=== PATIENT | female | born 1960 | race African-American/Black ===

== ENCOUNTER 2017-04-13 10:39 | Emergency (ER) | payer MEDICAID ==
[~2017-04-13] VITALS: Ht 170.2 cm; Wt 131.5 kg
[~2017-04-13 10:39] MED LIST: CALC667C PO; CELE200C PO; ENAL20TA PO; HYDR-552 PO; ZOLP10TA2 PO
--- NOTE | 2017-04-13 10:50 | NUR ---
PT TO ED ROOM 07. L FLANK PAIN SINCE YESTERDAY,NON RADIATING, DENIES HEMATURIA, DYSURIA. A/A/O. VS WNL. SIDE RAILS UP. HOB ELEVATED. CONENCTED TO MONITOR. SEEN AND EVALUATED BY ED PROVIDER.
--- NOTE | 2017-04-13 11:06 | NUR ---
CORRECTIONS SERGEANT AT BEDSIDE
[2017-04-13 11:12] LABS: BASOPHILS % (AUTO) 0.9 % (0.0-2.0); EOSINOPHILS # (AUTO) 0.2 /CMM (0.0-0.7); LYMPHOCYTES # (AUTO) 0.9 /CMM (0.8-4.8); MONOCYTES # (AUTO) 0.2 /CMM (0.1-1.30); NEUTROPHILS # (AUTO) 2.6 /CMM (1.8-8.9); RED BLOOD CELL COUNT(AUTO) 5.23 MIL/uL (4.0-5.2); WHITE BLOOD COUNT (AUTO) 3.9 K/uL (4.3-11.0)
[2017-04-13 11:14] LABS: EOSINOPHILS % (AUTO) 4.8 % (0.0-6.0); HEMATOCRIT 45 % (33-45); HEMOGLOBIN 14.6 g/dL (11.5-14.8); LYMPHOCYTES % (AUTO) 21.8 % (20.0-44.0); MEAN CORPUSCULAR HEMOGLOBIN 28 PG (26.0-33.0); MEAN CORPUSCULAR HGB CONC 32 g/dl (31.0-36.0); MEAN CORPUSCULAR VOLUME 86 fL (82-100); MONOCYTES % (AUTO) 5.9 % (2.0-12.0); NEUTROPHILS % (AUTO) 66.6 % (43.0-81.0); PLATELET COUNT (AUTO) 304 /CMM (150-450); RDW COEFFICIENT OF VARIATION 16.1 (11.5-15.0)
[2017-04-13 11:15] LABS: APPEARANCE,URINE Clear (CLEAR); BILIRUBIN,URINE Negative (NEGATIVE); BLOOD, URINE Negative Ery/uL (NEGATIVE); COLOR,URINE Yellow (YELLOW); KETONES,URINE Negative (NEGATIVE); LEUKOCYTE ESTERASE ,URINE Trace (NEGATIVE); NITRITE, URINE Negative (NEGATIVE); PROTEIN,URINE 100 mg/dl (NEGATIVE); UGLUCOSE Negative (NEGATIVE); UROBILINOGEN,URINE 0.2 EU/dL (0.2)
[2017-04-13 11:25] LABS: BACTERIA,URINE Few /HPF (None Seen); RBC,URINE 0-2 /HPF (0-2); SQUAMOUS EPITHELIAL CELL,UR Few /HPF (None Seen)
[2017-04-13 11:25] LABS: ALBUMIN 3.4 g/dL (3.4-5.0); BILIRUBIN,DIRECT 0.1 mg/dL (0.0-0.2); BILIRUBIN,TOTAL 0.4 mg/dL (0.2-1.0); CALCIUM, SERUM 8.8 mg/dL (8.5-10.1); CREATININE 2.2 mg/dL (0.6-1.3); POTASSIUM 4.1 mmol/L (3.5-5.1); TOTAL PROTEIN, SERUM 7.8 g/dL (6.4-8.2)
[2017-04-13 11:33] VITALS: BP 138/94
--- NOTE | 2017-04-13 11:35 | NUR ---
Patient discharged to home in stable condition. Written and verbal after care instructions given. Patient verbalizes understanding of instruction. NAD. VS WNL. Ambulatory with a steady gait.
== END 2017-04-13 11:35 | disposition home or self-care (01) ==
LOC: ER 10:40
DX: R10.9 Unspecified abdominal pain (principal); R22.1 Localized swelling, mass and lump, neck; N05.9 Unspecified nephritic syndrome with unspecified morphologic changes; I10 Essential (primary) hypertension; F17.200 Nicotine dependence, unspecified, uncomplicated; Z98.890 Other specified postprocedural states
CPT/HCPCS: 36415; 80048-TC; 80076-TC; 81000-TC; 83690-TC; 85025-TC; A4606; Z7610

== ENCOUNTER 2018-11-14 15:50 | Emergency (ER) | payer MEDICAID ==
[~2018-11-14] VITALS: Ht 170.2 cm; Wt 131.5 kg
[~2018-11-14 15:50] MED LIST changes: +HYDR-4384 PO; -HYDR-552 PO
--- NOTE | 2018-11-14 15:50 | NUR ---
PT BIB SELF WORSENING COUGH AND SOB X "FEW DAYS", PT IS AAOX3, NOT IN RESPIRATORY DISTRESS, V/S STABLE, KEPT RESTED AND COMFORTABLE. SEEN AND EXAMINE BY DR. GARZON.
[2018-11-14] MEDS ORDERED: ALBUTEROL FS 2.5 MG/3 ML VIAL.NEB CONTNEB ONE (16:30)
[2018-11-14] MEDS ORDERED: IPRATROPIUM NEB FS 0.5 MG/2.5 ML AMPUL.NEB NEB ONE (16:30)
[2018-11-14] MEDS ORDERED: predniSONE 20 MG TABLET PO ONE (16:30)
[2018-11-14] MEDS ORDERED: ALBUTEROL FS 2.5 MG/3 ML VIAL.NEB ONE (16:41)
[2018-11-14] MEDS ORDERED: IPRATROPIUM NEB FS 0.5 MG/2.5 ML AMPUL.NEB ONE (16:41)
--- NOTE | 2018-11-14 18:38 | NUR ---
Patient discharged to home in stable condition. Written and verbal after care instructions given. Patient verbalizes understanding of instruction.
[2018-11-14 18:39] VITALS: BP 136/79
[2019-01-21] MEDS ORDERED: FURO40TA5 PO (14:15)
[2019-01-21] MEDS ORDERED: CARV3.122 PO (14:15)
== END 2018-11-14 18:41 | disposition home or self-care (01) ==
LOC: ER 15:57
DX: J20.9 Acute bronchitis, unspecified (principal); N05.9 Unspecified nephritic syndrome with unspecified morphologic changes; Z96.649 Presence of unspecified artificial hip joint; Z96.669 Presence of unspecified artificial ankle joint

== ENCOUNTER 2019-01-18 12:21 | Inpatient (IN) | payer MEDICAID ==
[~2019-01-18] VITALS: Ht 170.2 cm; Wt 130.6 kg
--- NOTE | 2019-01-18 13:45 | NUR ---
FEELING SHORT OF BREATH X 5 DAYS. PT AAOX4, VSS. DENIES CP, DIZZINESS, N/V AT THIS TIME. PT SEEN & EVAL'D BY KAM MOSLEY. PLACED ON CHILDREN'S BOOK AUTHOR. WILL CONT TO MONITOR.
[2019-01-18 13:51] LABS: BASOPHILS % (AUTO) 0.7 % (0.0-2.0); EOSINOPHILS % (AUTO) 2.7 % (0.0-6.0); HEMATOCRIT 45 % (33-45); HEMOGLOBIN 14.4 g/dL (11.5-14.8); LYMPHOCYTES # (AUTO) 1.2 /CMM (0.8-4.8); LYMPHOCYTES % (AUTO) 17.7 % (20.0-44.0); MEAN CORPUSCULAR HGB CONC 32 g/dl (31.0-36.0); MEAN CORPUSCULAR VOLUME 93 fL (82-100); MONOCYTES # (AUTO) 0.5 /CMM (0.1-1.30); MONOCYTES % (AUTO) 7.3 % (2.0-12.0); NEUTROPHILS # (AUTO) 4.8 /CMM (1.8-8.9); NEUTROPHILS % (AUTO) 71.6 % (43.0-81.0); PLATELET COUNT (AUTO) 240 /CMM (150-450); RED BLOOD CELL COUNT(AUTO) 4.85 MIL/uL (4.0-5.2); WHITE BLOOD COUNT (AUTO) 6.7 K/uL (4.3-11.0)
[2019-01-18 14:02] LABS: CALCIUM, SERUM 8.7 mg/dL (8.5-10.1); CREATININE 2.5 mg/dL (0.6-1.3); POTASSIUM 4.9 mmol/L (3.5-5.1)
[2019-01-18 14:13] LABS: ALBUMIN 2.7 g/dL (3.4-5.0); BILIRUBIN,DIRECT 0.2 mg/dL (0.0-0.2); BILIRUBIN,TOTAL 0.9 mg/dL (0.2-1.0); TOTAL PROTEIN, SERUM 6.4 g/dL (6.4-8.2)
[2019-01-18] MEDS ORDERED: FUROSEMIDE 40 MG/4 ML VIAL IV ONE (16:00)
[2019-01-18] MEDS ORDERED: FUROSEMIDE 40 MG/4 ML VIAL ONE (16:06)
--- NOTE | 2019-01-18 16:20 | NUR ---
IV ACCESS OBTAIN ON THE L FOREARM 22G. PT NOTED WITH SOB WITH O2 SAT OF 90-92% ON RA. O2 ADMINISTERED @ 2LPM. PT SOB GOT RELIEVED AND VERBALIZED COMFORT.
--- NOTE | 2019-01-18 17:01 | NUR ---
321-1 TELE CHF ACCEPTING ROMAINE FLORES
--- NOTE | 2019-01-18 17:09 | NUR ---
EPIC PAGED SANDRA APIGEE DEVELOPER FOR THIS PATIENT
--- NOTE | 2019-01-18 19:20 | NUR ---
PT AAOX4, USING HER CELLPHONE, RR EVEN & UNLABORED. DENIES CP, SOB, DIZZINESS, N/V, WEAKNESS @ THIS TIME. WILL CONT TO MONITOR.
[2019-01-18 20:00] VITALS: BP 133/94
[2019-01-18] MEDS ORDERED: MAG HYDROX/AL HYDROX/SIMETH 30 ML UDC PO PRN (20:00)
[2019-01-18] MEDS ORDERED: NITROGLYCERIN 0.4 MG/TAB BOTTLE SL PRN (20:00)
[2019-01-18] MEDS ORDERED: ONDANSETRON HCL/PF 4 MG/2 ML VIAL IVP PRN (20:00)
[2019-01-18] MEDS ORDERED: MAGNESIUM HYDROXIDE 30 ML UDC PO PRN (20:00)
[2019-01-18] MEDS ORDERED: HYDROCODONE/APAP 5/325MG 1 EACH TABLET PO PRN (20:00)
[2019-01-18] MEDS ORDERED: ACETAMINOPHEN 325 MG TABLET PO PRN (20:00)
[2019-01-18] MEDS ORDERED: Z GUARD REMEDY 2 OZ OINT TP PRN (20:00)
[2019-01-18 20:30] VITALS: BP 133/94
[2019-01-18] MEDS: ZOLPIDEM TARTRATE 5 MG TABLET PO PRN (21:13)
[2019-01-18] MEDS: SIMVASTATIN 10 MG TABLET PO SCH (21:13)
[2019-01-18] MEDS: HEPARIN SODIUM, PORCINE 5000 UNITS/1 ML VIAL SQ SCH (21:14)
[2019-01-18] MEDS: CARVEDILOL 3.125 MG TABLET PO SCH (21:15)
--- NOTE | 2019-01-18 21:44 | NUR ---
Receive pt at 1950 from E.R services, Pt a/o x3 on 3lpm via de 02 sat at 97% respirations even and unlabored. head to toe assessment is done skin is intact. admit to telemetry unit with reading of SR 68 in the tele mtr. denies pain and sob, kept clean and dry. safety measures in place. no edema ble and bue. no face puffiness. will cont to mtr.
[2019-01-19] VITALS: BP 119/83
[2019-01-19 04:00] VITALS: BP 125/66
[2019-01-19 04:47] LABS: APPEARANCE,URINE CLEAR (CLEAR); BILIRUBIN,URINE NEGATIVE (NEGATIVE); BLOOD, URINE NEGATIVE Ery/uL (NEGATIVE); COLOR,URINE YELLOW (YELLOW); KETONES,URINE NEGATIVE (NEGATIVE); LEUKOCYTE ESTERASE ,URINE TRACE (NEGATIVE); NITRITE, URINE NEGATIVE (NEGATIVE); PROTEIN,URINE 1+ mg/dl (NEGATIVE); UGLUCOSE NEGATIVE (NEGATIVE); UROBILINOGEN,URINE 0.2 EU/dL (0.2)
[2019-01-19 04:54] LABS: BACTERIA,URINE Few /HPF (None Seen); RBC,URINE 0-2 /HPF (0-2); SQUAMOUS EPITHELIAL CELL,UR Few /HPF (None Seen)
--- NOTE | 2019-01-19 06:10 | NUR ---
ELECTROLYSIS OPERATOR CLOSING NOTE PT ASLEEP EASILY AWAKEN, SR 71 IN THE TELE MONITOR. RESPIRATIONS EVEN AND UNLABORED. NOT IN DISTRESS, STABLE. NEEDS ATTENDED AND ANTICIPATED, KEPT CLEAN AND DRY AND COMFORT. NO COMPLAIN OF PAIN. SAFETY MEASURES IN PLACE, BED IN LOW LOCKED POSITION, CALL LIGHT WITHIN EASY REACH. ENDORSE TO NEXT SHIFT CONTINUITY OF CARE.
--- NOTE | 2019-01-19 07:47 | NUR ---
MS/RN - Assessment Patient alert and oriented, denies pain, c/o mild shortness of breath with activity, on oxygen at 3lpm via NC. Seen by Dr. Pyle with order to dc tele monitoring, administer Lasix 40 mg IVP, labs, uric acid today. Saline lock on the LFA is patent, intact, with no signs of complications. Skin is intact. Patient assisted with ADLs to minimize exhaustion. All needs attended. Plan of care discussed with patient and in agreement. Will continue with current medical management.
[2019-01-19 08:00] VITALS: BP 136/112
[2019-01-19] MEDS: CARVEDILOL 3.125 MG TABLET PO SCH ×2 (08:18→21:34)
[2019-01-19] MEDS: FUROSEMIDE 40 MG/4 ML VIAL IV SCH ×3 (08:18→15:47)
[2019-01-19] MEDS: ASPIRIN EC 81 MG TABLET.DR PO SCH (08:18)
[2019-01-19] MEDS: HEPARIN SODIUM, PORCINE 5000 UNITS/1 ML VIAL SQ SCH ×2 (08:19→21:38)
[2019-01-19 08:25] LABS: BASOPHILS % (AUTO) 0.7 % (0.0-2.0); EOSINOPHILS % (AUTO) 4.2 % (0.0-6.0); HEMATOCRIT 45 % (33-45); HEMOGLOBIN 14.6 g/dL (11.5-14.8); MEAN CORPUSCULAR HGB CONC 32 g/dl (31.0-36.0); MEAN CORPUSCULAR VOLUME 92 fL (82-100); MONOCYTES # (AUTO) 0.4 /CMM (0.1-1.30); MONOCYTES % (AUTO) 6.6 % (2.0-12.0); NEUTROPHILS % (AUTO) 71.5 % (43.0-81.0); PLATELET COUNT (AUTO) 204 /CMM (150-450); RED BLOOD CELL COUNT(AUTO) 4.91 MIL/uL (4.0-5.2); WHITE BLOOD COUNT (AUTO) 5.6 K/uL (4.3-11.0)
[2019-01-19 08:42] LABS: CALCIUM, SERUM 8.6 mg/dL (8.5-10.1); CREATININE 2.6 mg/dL (0.6-1.3); MAGNESIUM 1.7 mg/dL (1.8-2.4); PHOSPHORUS 4.8 mg/dL (2.5-4.9); POTASSIUM 4.7 mmol/L (3.5-5.1)
[2019-01-19] MEDS: Magnesium 1GM/D5W 100ML PREMIX 100 ML IV SCH ×2 (09:01→10:10)
[2019-01-19 09:03] LABS: THYROID STIMULATING HORMONE 6.657 uIU/mL (0.358-3.74)
[2019-01-19] MEDS ORDERED: LOSA50TA39 PO (10:24)
[2019-01-19] MEDS ORDERED: OXYC-133 PO (10:24)
[2019-01-19] MEDS ORDERED: BUPR100T5 PO (10:24)
[2019-01-19] MEDS ORDERED: ARIP2TAB3 PO (10:24)
[2019-01-19] MEDS ORDERED: ALLO100T PO (10:24)
[2019-01-19] MEDS ORDERED: MULT-1119 PO (10:24)
[2019-01-19] MEDS ORDERED: ATEN100T PO (10:24)
[2019-01-19] MEDS ORDERED: COLC0.6C3 PO (10:27)
[2019-01-19 16:00] VITALS: BP 137/99
--- NOTE | 2019-01-19 17:34 | NUR ---
MS/RN - End of shift summary No new events seen. Patient resting comfortably, remain afebrile, saline lock on the right hand is patent, intact, with no signs of infiltration. Lasix 40 mg IVP x 3 doses completed, patient diuresing well, magnesium sulfate 2 gms IV given as ordered. All needs attended. Fall precautions maintained. Will endorse to the night nurse accordingly.
--- NOTE | 2019-01-19 19:30 | NUR ---
RN MS OPENING NOTES RECEIVED PATIENT IN BED AWAKE, ALERT AND ORIENTED X4, VERBALLY RESPONSIVE, ABLE TO MAKE NEEDS KNOWN. FAMILY AT BEDSIDE. BREATHING EVEN AND UNLABORED. NO SOB NOTED. TOLERATING ROOM AIR. FEELS "FINE" WITHOUT OXYGEN AT THE MOMENT. EXPRESS RELIEF FROM LASIX GIVEN TODAY. NO COMPLAINTS OF PAIN OR DISCOMFORT. NO FACIAL GRIMACING. IV ON RIGHT HAND INTACT AND PATENT. SKIN DRY AND WARM TO TOUCH. AFEBRILE. ALL OTHER NEEDS ATTENDED TO .SAFETY MEASURES IN PLACE. CALL LIGHT WITHIN REACH. WILL CONTINUE TO MONITOR.
[2019-01-19 20:00] VITALS: BP 114/87
[2019-01-19] MEDS: SIMVASTATIN 10 MG TABLET PO SCH (21:34)
[2019-01-19] MEDS: ZOLPIDEM TARTRATE 5 MG TABLET PO PRN (21:35)
--- NOTE | 2019-01-20 06:36 | NUR ---
RN MS NOTES PHLEB HAD A HARD TIME DRAWING BLOOD FOR TODAY'S LABS. PATIENT REQUESTED TO BE POKED ONLY. PER PHLEB, THEY WILL HAVE TO COME BACK LATER. WILL ENDORSE TO ONCOMING NURSE.
--- NOTE | 2019-01-20 06:37 | NUR ---
RN MS CLOSING NOTES PATIENT RESTING IN BED. CAREGIVER AT BEDSIDE. BREATHING EVEN AND UNLABORED. NO SOB NOTED. TOLERATING ROOM AIR. NO COMPLAINTS OF PAIN OR DISCOMFORT. NO FACIAL GRIMACING. IV ON RIGHT HAND INTACT AND PATENT. SKIN DRY AND WARM TO TOUCH. AFEBRILE. ALL OTHER NEEDS ATTENDED TO .SAFETY MEASURES IN PLACE. CALL LIGHT WITHIN REACH. WILL ENDORSE TO ONCOMING NURSE FOR JEAN PIERRE.
--- NOTE | 2019-01-20 07:35 | NUR ---
MS/RN - Assessment Patient alert and oriented, no complaints overnight, denies pain, states feeling better, on oxygen at 3lpm via NC. Saline lock on the right hand is patent, intact, with no signs of complications. Plan of care discussed with patient and family. Will continue with current medical management.
[2019-01-20 08:00] VITALS: BP 113/69
[2019-01-20] MEDS: CARVEDILOL 3.125 MG TABLET PO SCH ×2 (08:06→21:44)
[2019-01-20] MEDS: ASPIRIN EC 81 MG TABLET.DR PO SCH (08:06)
[2019-01-20] MEDS: HEPARIN SODIUM, PORCINE 5000 UNITS/1 ML VIAL SQ SCH ×2 (08:13→21:46)
[2019-01-20 08:43] LABS: BASOPHILS % (AUTO) 0.6 % (0.0-2.0); EOSINOPHILS % (AUTO) 5.7 % (0.0-6.0); HEMATOCRIT 45 % (33-45); HEMOGLOBIN 14.6 g/dL (11.5-14.8); LYMPHOCYTES # (AUTO) 1.4 /CMM (0.8-4.8); LYMPHOCYTES % (AUTO) 23.7 % (20.0-44.0); MEAN CORPUSCULAR HGB CONC 33 g/dl (31.0-36.0); MEAN CORPUSCULAR VOLUME 92 fL (82-100); MONOCYTES # (AUTO) 0.5 /CMM (0.1-1.30); MONOCYTES % (AUTO) 8.9 % (2.0-12.0); NEUTROPHILS # (AUTO) 3.5 /CMM (1.8-8.9); NEUTROPHILS % (AUTO) 61.1 % (43.0-81.0); PLATELET COUNT (AUTO) 227 /CMM (150-450); RED BLOOD CELL COUNT(AUTO) 4.88 MIL/uL (4.0-5.2); WHITE BLOOD COUNT (AUTO) 5.8 K/uL (4.3-11.0)
[2019-01-20 08:55] LABS: ALBUMIN 2.7 g/dL (3.4-5.0); BILIRUBIN,TOTAL 0.9 mg/dL (0.2-1.0); CALCIUM, SERUM 8.9 mg/dL (8.5-10.1); CREATININE 2.4 mg/dL (0.6-1.3); MAGNESIUM 1.9 mg/dL (1.8-2.4); PHOSPHORUS 4.6 mg/dL (2.5-4.9); POTASSIUM 4.1 mmol/L (3.5-5.1); TOTAL PROTEIN, SERUM 6.5 g/dL (6.4-8.2)
[2019-01-20] MEDS: FUROSEMIDE 40 MG/4 ML VIAL IV SCH ×3 (09:13→16:23)
[2019-01-20] MEDS ORDERED: GUAIFENESIN 300 MG/15 ML UDC PO PRN (11:30)
[2019-01-20 16:00] VITALS: BP 117/77
[2019-01-20] MEDS: ARIPIPRAZOLE 2 MG TABLET PO SCH (17:39)
--- NOTE | 2019-01-20 17:58 | NUR ---
MS/RN - End of shift summary No new events seen. Patient states feeling better, remain afebrile, saline lock on the right hand is patent, intact, with no signs of infiltration. Lasix 40 mg IVP x 3 doses completed, patient diuresing well. All needs attended. Will endorse to the night nurse accordingly.
--- NOTE | 2019-01-20 19:41 | NUR ---
RN MS OPENING NOTES RECEIVED PATIENT IN BED AWAKE, ALERT AND ORIENTED X4, VERBALLY RESPONSIVE, ABLE TO MAKE NEEDS KNOWN. FAMILY AT BEDSIDE. BREATHING EVEN AND UNLABORED. NO SOB NOTED. TOLERATING ROOM AIR. FEELS "FINE" WITHOUT OXYGEN AT THE MOMENT. NO COMPLAINTS OF PAIN OR DISCOMFORT. NO FACIAL GRIMACING. IV ON RIGHT HAND INTACT AND PATENT. SKIN DRY AND WARM TO TOUCH. AFEBRILE. ALL OTHER NEEDS ATTENDED TO .SAFETY MEASURES IN PLACE. CALL LIGHT WITHIN REACH. WILL CONTINUE TO MONITOR.
[2019-01-20 20:26] VITALS: BP 118/89
[2019-01-20] MEDS: SIMVASTATIN 10 MG TABLET PO SCH (21:44)
[2019-01-20] MEDS: ZOLPIDEM TARTRATE 5 MG TABLET PO PRN (21:44)
--- NOTE | 2019-01-21 06:43 | NUR ---
RN MS CLOSING NOTES PATIENT RESTING IN BED. BREATHING EVEN AND UNLABORED. NO SOB NOTED. TOLERATING ROOM AIR. NO COMPLAINTS OF PAIN OR DISCOMFORT. NO FACIAL GRIMACING. IV ON RIGHT HAND INTACT AND PATENT. SKIN DRY AND WARM TO TOUCH. AFEBRILE. ALL OTHER NEEDS ATTENDED TO .SAFETY MEASURES IN PLACE. CALL LIGHT WITHIN REACH. WILL ENDORSE TO ONCOMING NURSE FOR JEAN PIERRE.
[2019-01-21 06:47] LABS: BASOPHILS % (AUTO) 0.6 % (0.0-2.0); EOSINOPHILS % (AUTO) 4.5 % (0.0-6.0); HEMATOCRIT 48 % (33-45); HEMOGLOBIN 15.8 g/dL (11.5-14.8); LYMPHOCYTES # (AUTO) 1.5 /CMM (0.8-4.8); LYMPHOCYTES % (AUTO) 25.4 % (20.0-44.0); MEAN CORPUSCULAR HGB CONC 33 g/dl (31.0-36.0); MEAN CORPUSCULAR VOLUME 92 fL (82-100); MONOCYTES # (AUTO) 0.6 /CMM (0.1-1.30); MONOCYTES % (AUTO) 10.8 % (2.0-12.0); NEUTROPHILS # (AUTO) 3.5 /CMM (1.8-8.9); NEUTROPHILS % (AUTO) 58.7 % (43.0-81.0); PLATELET COUNT (AUTO) 234 /CMM (150-450); RED BLOOD CELL COUNT(AUTO) 5.23 MIL/uL (4.0-5.2)
[2019-01-21 06:50] LABS: ALBUMIN 2.7 g/dL (3.4-5.0); BILIRUBIN,TOTAL 0.8 mg/dL (0.2-1.0); CALCIUM, SERUM 8.9 mg/dL (8.5-10.1); CREATININE 2.4 mg/dL (0.6-1.3); MAGNESIUM 1.9 mg/dL (1.8-2.4); PHOSPHORUS 4.4 mg/dL (2.5-4.9); POTASSIUM 3.9 mmol/L (3.5-5.1); TOTAL PROTEIN, SERUM 6.7 g/dL (6.4-8.2)
--- NOTE | 2019-01-21 07:41 | NUR ---
RN MS OPENING NOTES RECEIVED PATIENT IN BED AWAKE, ALERT AND ORIENTED X4, ABLE TO MAKE NEEDS KNOWN. BREATHING EVEN AND UNLABORED. NO SOB NOTED. TOLERATING ROOM AIR WITH O2 SAT. 99%. NO COMPLAINTS OF PAIN OR DISCOMFORT AT THIS TIME. IV ON RIGHT HAND GAUGE #22 INTACT AND PATENT. SKIN DRY AND WARM TO TOUCH. AFEBRILE. VITAL SIGNS WNL. SAFETY MEASURES IN PLACE, BED IN LOWEST LOCKED POSITION SR UP X2. CALL LIGHT WITHIN REACH. WILL CONTINUE TO MONITOR.
[2019-01-21 08:15] VITALS: BP 110/80
[2019-01-21] MEDS ORDERED: ALLOPURINOL 100 MG TABLET PO SCH (09:00)
[2019-01-21] MEDS ORDERED: MULTIVIT W/MINERALS 1 TAB TABLET PO SCH (09:00)
[2019-01-21] MEDS ORDERED: FUROSEMIDE 40 MG TABLET PO SCH (09:00)
[2019-01-21] MEDS ORDERED: buPROPion SR 100 MG TABLET.ER PO SCH (09:00)
[2019-01-21] MEDS: HEPARIN SODIUM, PORCINE 5000 UNITS/1 ML VIAL SQ SCH ×2 (10:17→20:49)
[2019-01-21] MEDS: CARVEDILOL 3.125 MG TABLET PO SCH ×2 (10:18→20:49)
[2019-01-21] MEDS: ASPIRIN EC 81 MG TABLET.DR PO SCH (10:18)
[2019-01-21] MEDS: CALCIUM ACETATE 667 MG TABLET PO SCH ×3 (10:18→17:32)
[2019-01-21] MEDS ORDERED: CARV3.122 PO (14:15)
[2019-01-21] MEDS ORDERED: FURO40TA5 PO (14:15)
[2019-01-21 16:00] VITALS: BP 108/75
[2019-01-21] MEDS: ARIPIPRAZOLE 2 MG TABLET PO SCH (17:32)
--- NOTE | 2019-01-21 18:55 | NUR ---
RN CLOSING NOTES PATIENT IS RESTING COMFORTABLY IN BED. PATIENT DENIES PAIN OR DISCOMFORT AT THIS TIME. IV ACCESS ON RIGHT HAND G#22 SALINE LOCKED, PATENT AND INTACT. BREATHING IS EVEN AND UNLABORED TO ROOM AIR WITH AN O2 SAT. 97%. VITAL SIGNS RECORDED AND ARE WNL AT THIS TIME. SAFETY PRECAUTIONS IMPLEMENTED, BED IN LOWEST LOCKED POSITION WITH SR UP X2, CALL LIGHT WITHIN REACH. PATIENT DISCHARGE ENDORSED TO TREASURY ACCOUNTANT NURSE.
--- NOTE | 2019-01-21 19:27 | NUR ---
MS RN RECEIVE PT IN BED. A/O X 3 RESPIRATIONS EVEN AND UNLABORED, NO SOB NOTED, NO DISTRESS, SAFETY MEASURES IN PLACE. WILL CONTINUE TO MONITOR. FOR DISCHARGE AWAITING SON
[2019-01-21 20:00] VITALS: BP 118/82
[2019-01-21 20:49] VITALS: BP 118/82
[2019-01-21] MEDS: SIMVASTATIN 10 MG TABLET PO SCH (21:01)
--- NOTE | 2019-01-21 21:09 | NUR ---
PATIENT DISCHARGE PATIENT LEFT AT 2108, ACCOMPANIED BY SON OLDER JIM PATIENT ON STABLE CONDITION NO S/S OF DISTRESS NOTED, NO CHEST PAIN, NO HEADACHE, NO NAUSEA AND VOMITING, NO COMPLAIN OF PAIN, VS STABLE, NO SOB, HEALTH EDUCATION AND EXIT CARE WAS PROVIDED, EDUCATION ABOUT DISEASE AND RISKS AND BENEFITS FOLLOW UP CARE PROVIDED, VERBALIZED UNDERSTANDING. DOCUMENTS WAS PROVIDED. CONTINUE MEDICATION PRESCRIPTION WAS PROVIDED. VERBALIZED UNDERSTANDING. ALL BELONGINGS WAS TAKEN, PT LEFT VIA W/C AND OWN VEHICLE. PATIENT APPRECIATIVE TO NURSES AND THANKFUL.
== END 2019-01-21 21:05 | disposition home or self-care (01) | DRG 194 ==
LOC: ER 12:31 → TELE 17:28 → MED 01-19 10:14
PROVIDERS: ADMIT Hospitalist; ATTEND Hospitalist
DX: I13.0 Hypertensive heart and chronic kidney disease with heart failure and stage 1 through stage 4 chronic kidney disease, or unspecified chronic kidney disease (principal); N17.0 Acute kidney failure with tubular necrosis; I50.33 Acute on chronic diastolic (congestive) heart failure; E44.1 Mild protein-calorie malnutrition; E66.01 Morbid (severe) obesity due to excess calories; N18.4 Chronic kidney disease, stage 4 (severe); G47.33 Obstructive sleep apnea (adult) (pediatric); Z87.891 Personal history of nicotine dependence; Z68.42 Body mass index [BMI] 45.0-49.9, adult; Z87.448 Personal history of other diseases of urinary system; F14.11 Cocaine abuse, in remission
CPT/HCPCS: 36415; 71045-TC; 76770-TC; 80048-TC; 80053-TC; 80061-TC; 80076-TC; 81000-TC; 83735-TC; 83880; 84100-TC; 84439-TC; 84443-TC; 84484-TC; 84550-TC; 85025-TC; 85730-TC; 87081-TC; 87086-TC; 87400; 93307-TC; G0378; J1644; J1940; J3475

== ENCOUNTER 2019-04-14 14:05 | Inpatient (IN) | payer MEDICAID ==
[~2019-04-14] VITALS: Ht 170.2 cm; Wt 128.8 kg
[~2019-04-14 14:05] MED LIST changes: +ALLO100T PO; +ARIP2TAB3 PO; +BUPR100T5 PO; +CARV3.122 PO; -CELE200C PO; -ENAL20TA PO; +FURO40TA5 PO; -HYDR-4384 PO; +MULT-1119 PO
--- NOTE | 2019-04-14 14:30 | NUR ---
PT PRESENTED TO THE ER WITH A C/O SOB. PT'S O2 SAT ON RA WAS 88%. PT WAS TRIAGED AND TAKEN TO ER #1 AND PLACED ON 2L O2 AND IS NOW SATURATING AT 95%. PT STATED THAT SHE IS A HAD STICK. IV ATTEMPT X 2 UNSUCCESSFUL. DEE RN AT THE BEDSIDE ATTEMPTING IV START. RESIDENTIAL TEAM LEADER X2 AT THE BEDSIDE.
[2019-04-14 14:59] LABS: BASOPHILS % (AUTO) 0.6 % (0.0-2.0); EOSINOPHILS % (AUTO) 3.8 % (0.0-6.0); HEMATOCRIT 46 % (33-45); HEMOGLOBIN 14.9 g/dL (11.5-14.8); LYMPHOCYTES % (AUTO) 22.2 % (20.0-44.0); MEAN CORPUSCULAR HGB CONC 32 g/dl (31.0-36.0); MEAN CORPUSCULAR VOLUME 94 fL (82-100); MONOCYTES # (AUTO) 0.4 /CMM (0.1-1.30); MONOCYTES % (AUTO) 8.1 % (2.0-12.0); NEUTROPHILS # (AUTO) 2.8 /CMM (1.8-8.9); NEUTROPHILS % (AUTO) 65.3 % (43.0-81.0); PLATELET COUNT (AUTO) 182 /CMM (150-450); RED BLOOD CELL COUNT(AUTO) 4.91 MIL/uL (4.0-5.2); WHITE BLOOD COUNT (AUTO) 4.3 K/uL (4.3-11.0)
--- NOTE | 2019-04-14 15:09 | NUR ---
PT REC'D ANOTHER WARM BLANKET.
[2019-04-14 15:12] LABS: CALCIUM, SERUM 8.8 mg/dL (8.5-10.1); CARBON DIOXIDE 25 mmol/L (21-32); CHLORIDE 111 mmol/L (98-107); CREATININE 2.8 mg/dL (0.6-1.3); GLUCOSE 81 mg/dL (74-106); SODIUM SERUM 144 mmol/L (136-145); UREA NITROGEN, BLOOD 42 mg/dL (7-18)
--- NOTE | 2019-04-14 15:16 | NUR ---
XRAY IN PROGRESS AT THE BEDSIDE.
[2019-04-14 15:20] LABS: ALANINE AMINOTRANSFERASE 16 U/L (12-78); ALBUMIN 3.5 g/dL (3.4-5.0); ALKALINE PHOSPHATASE 103 U/L (46-116); ASPARTATE AMINOTRANSFERASE 17 U/L (15-37); B-TYPE NATRIURETIC PEPTIDE 8973 PG/ML (0-125); BILIRUBIN,DIRECT 0.2 mg/dL (0.0-0.2); TOTAL PROTEIN, SERUM 7.2 g/dL (6.4-8.2)
[2019-04-14] MEDS ORDERED: CARV6.252 PO (15:29)
[2019-04-14] MEDS ORDERED: MULT-447 PO (15:29)
[2019-04-14] MEDS ORDERED: FURO-144 PO (15:29)
[2019-04-14] MEDS ORDERED: OXYC-133 PO (15:29)
[2019-04-14] MEDS ORDERED: HYDR-4076 PO (15:30)
[2019-04-14] MEDS ORDERED: ISOS20TA6 PO (15:30)
--- NOTE | 2019-04-14 15:58 | NUR ---
CALLED NURSING SUP REQUESTED TELE BED
--- NOTE | 2019-04-14 16:16 | NUR ---
ADMIT TO TELE ROOM 324-2 CHF, ANIBAL DUKE ACCEPTED
--- NOTE | 2019-04-14 16:29 | NUR ---
CALLING REPORT TO TELE NURSE.
[2019-04-14] MEDS ORDERED: HYDROCODONE/APAP 5/325MG 1 EACH TABLET PO PRN (16:30)
[2019-04-14] MEDS ORDERED: MORPHINE SULFATE INJ 2 MG/ML DISP.SYRIN IV PRN (16:30)
[2019-04-14] MEDS ORDERED: ACETAMINOPHEN 325 MG TABLET PO PRN (16:30)
[2019-04-14] MEDS ORDERED: MAGNESIUM HYDROXIDE 30 ML UDC PO PRN (16:30)
[2019-04-14] MEDS ORDERED: MAG HYDROX/AL HYDROX/SIMETH 30 ML UDC PO PRN (16:30)
[2019-04-14] MEDS ORDERED: ONDANSETRON HCL/PF 4 MG/2 ML VIAL IVP PRN (16:30)
[2019-04-14] MEDS ORDERED: ALBUTEROL FS 2.5 MG/0.5 ML VIAL.NEB NEB PRN (16:30)
--- NOTE | 2019-04-14 16:38 | NUR ---
REPORT GIVEN TO JUAN THAPA
[2019-04-14 17:00] VITALS: BP 126/96
[2019-04-14] MEDS ORDERED: hydrALAZINE HCL 25 MG TABLET PO SCH (17:00)
[2019-04-14] MEDS ORDERED: FUROSEMIDE 40 MG/4 ML VIAL IV SCH ×2 (17:00)
--- NOTE | 2019-04-14 17:00 | NUR ---
RECEIVED PATIENT AWAKE A/O X4 , ABLE TO AMBULATE WITH ASSISTANTS. BREATHING LABORED , EVEN ON O2 2L VIA NC SATURATING 93 5. PATIENT PLACED ON TELE , SR WITH 1 DEGREE BLOCK HR 75 AT THIS TIME. SKIN INTACT. PATIENT ORIENTED TO UNIT AND ROOM, EDUCATED TO USE CALL LIGHT. SAFETY PRECAUTIONS IN PLACE. BSC PLACED NEXT TO PATIENT'S BED. WILL CARRY OUT ADM.ORDERS.
[2019-04-14] MEDS: ISOSORBIDE MONONITRATE 20 MG TABLET PO SCH (17:48)
[2019-04-14] MEDS: CARVEDILOL 6.25 MG TABLET PO SCH (17:48)
[2019-04-14] MEDS: AZITHROMYCIN 500 MG in IV D5W 250 ML IV SCH (18:26)
[2019-04-14 20:00] VITALS: BP 97/60
--- NOTE | 2019-04-14 20:37 | NUR ---
PATIENT IS REQUESTING A COUGH MED, TEXTED THE CHIEF UNDERWRITER ANIBAL. WAITING FOR THE RESPONSE.
[2019-04-14] MEDS: HEPARIN SODIUM, PORCINE 5000 UNITS/1 ML VIAL SQ SCH (21:46)
--- NOTE | 2019-04-14 22:29 | NUR ---
V/S TAKEN BY AESTHETICS INSTRUCTOR AT 1999 AND RECORDED, WNL. AFEBRILE.
[2019-04-15] VITALS: BP 123/53
[2019-04-15] MEDS: ZOLPIDEM TARTRATE 5 MG TABLET PO PRN ×2 (00:57→23:13)
[2019-04-15 04:10] VITALS: BP 115/64
--- NOTE | 2019-04-15 06:00 | NUR ---
RN CLOSING NOTES: PATIENT'S HEMODYNAMICS AND RESPIRATORY STATUS ARE STABLE. VS WNL. AFEBRILE. SLEPT THROUGHOUT THE NIGHT AFTER AMBIEN GIVEN. NO SOB NOTED. CALL LIGHT WITHIN REACH. BED IN LOW AND LOCKED POSITION.
--- NOTE | 2019-04-15 07:30 | NUR ---
tele logging tractor operator swamp: initial assessment received pt in bed awake, a/ox4. no c/o sob, chest pain, or any discomfort. tele sb to sr=[id number]. instructed to call for assistance. will continue to monitor.
[2019-04-15 08:00] VITALS: BP 103/80
--- NOTE | 2019-04-15 08:15 | NUR ---
tele enrollment advisor: notes previous weight was 270 lbs per pt from her last visit with her primary doctor. asked pt to stand up and will zero the bed out and to re-weight once zeroing is successful. current eheutj=066.5 lbs at this time and pt acknowledge it. will continue to monitor.
--- NOTE | 2019-04-15 08:25 | NUR ---
tele cable mock up assembler: notes jewels (acnp) here and informed him that pt has been coughing since last night and request for cough medicine with verbal order to give her robitussin dm 5ml po every 4 hours prn. order read back and carried out. for cardio consult. will continue to monitor.
--- NOTE | 2019-04-15 08:54 | NUR ---
tele tack welder: cardio consult seen and examined by dr. gonzalez with new orders. orders acknowledged. pt for d'c tele. will continue to monitor.
[2019-04-15] MEDS ORDERED: LEVALBUTEROL HCL NEB 1.25 MG/0.5 ML VIAL.NEB IH SCH (09:00)
[2019-04-15] MEDS ORDERED: GUAIFENESIN/D-METHORPHAN HB 5 ML UDC PO PRN (09:00)
[2019-04-15] MEDS: hydrALAZINE HCL 25 MG TABLET PO SCH ×3 (09:00→17:00)
[2019-04-15] MEDS ORDERED: LEVALBUTEROL HCL NEB 1.25 MG/0.5 ML VIAL.NEB ONE (09:05)
[2019-04-15] MEDS: MULTIVIT W/MINERALS 1 TAB TABLET PO SCH (09:27)
[2019-04-15] MEDS: ISOSORBIDE MONONITRATE 20 MG TABLET PO SCH ×3 (09:27→17:45)
[2019-04-15] MEDS: GUAIFENESIN/D-METHORPHAN HB 5 ML UDC PO PRN (09:27)
[2019-04-15] MEDS: CARVEDILOL 6.25 MG TABLET PO SCH ×2 (09:27→17:45)
[2019-04-15] MEDS: ASPIRIN 81 MG TAB.CHEW PO SCH (09:27)
[2019-04-15] MEDS: HEPARIN SODIUM, PORCINE 5000 UNITS/1 ML VIAL SQ SCH (09:33)
--- NOTE | 2019-04-15 09:47 | NUR ---
m/s mammography technician: notes dr. gonzalez notified re: positive for thrombus at left common femoral vein, pt is already on heparin 5000u sq q 12hr with order to give her lovenox pharmacy to dose. order read back and carried out.
--- NOTE | 2019-04-15 10:20 | NUR ---
m/s wireless store manager: notes jewels (acnp) notified re: us lower ext's venous results and informed him that dr. gonzalez ordered lovenox sq earlier with order to d'c heparin sq, okay with lovenox. orders read back and carried out and acknowledged.
--- NOTE | 2019-04-15 12:00 | NUR ---
m/s bit setter: nephro f/u seen by dr. carranza. lunch served. hob elevated. instructed to call for assistance.
[2019-04-15] MEDS: ALBUTEROL FS 2.5 MG/0.5 ML VIAL.NEB NEB SCH ×2 (13:02→20:35)
[2019-04-15] MEDS: ENOXAPARIN SODIUM 120 MG/0.8 ML DISP.SYRIN SQ SCH ×2 (13:10→23:16)
--- NOTE | 2019-04-15 14:00 | NUR ---
m/s tin flopper: pulmo consult seen by dr. wisdom.
--- NOTE | 2019-04-15 14:30 | NUR ---
m/s passenger barge master: notes consent obtained for nm pulmonary ventilation r/o pe from pt and verbalized understanding.
[2019-04-15 16:00] VITALS: BP 119/83
--- NOTE | 2019-04-15 16:00 | NUR ---
m/s balance wheel hand filer: notes pt picked up for nm pulmonary perfusion with ventilation via wheelchair at this time.
--- NOTE | 2019-04-15 17:00 | NUR ---
m/s alligator trapper: notes pt back for nuclear medicine. son at bedside. instructed to call for assistance. will continue to monitor.
--- NOTE | 2019-04-15 17:30 | NUR ---
m/s manager mba: notes jessica (labor supervisor) called and informed that they couldn't draw her blood today and will try to re draw tonight,
[2019-04-15] MEDS: AZITHROMYCIN 500 MG in IV D5W 250 ML IV SCH (17:53)
--- NOTE | 2019-04-15 18:45 | NUR ---
m/s straw hat presser: notes pt c/o iv site hurting her. noted with slight swelling, removed with tip intact. attempted to insert iv by me and another nurse, but unsuccessful. pt wants to rest for a bit and try again later. family at bedside. instructed to call for assistance.
--- NOTE | 2019-04-15 19:10 | NUR ---
m/s wetland scientist: notes bedside report given to lo (rn) for continuity of care.
--- NOTE | 2019-04-15 19:15 | NUR ---
MS RN OPENING NOTES: RECEIVED PATIENT COMFORTABLE IN BED HAPPY AND LAUGHING TALKING TO THE VISITORS AT THE BEDSIDE. PATIENT HAS O2 NC. NO COUGHING NOTED. PATIENT VERBALIZED" I FEEL BETTER TONIGHT".
[2019-04-15 20:15] VITALS: BP 109/82
[2019-04-15] MEDS ORDERED: ENOXAPARIN SODIUM 120 MG/0.8 ML DISP.SYRIN SQ SCH (21:00)
[2019-04-15 23:38] LABS: BASOPHILS % (AUTO) 0.9 % (0.0-2.0); EOSINOPHILS % (AUTO) 6.2 % (0.0-6.0); HEMATOCRIT 41 % (33-45); HEMOGLOBIN 13.1 g/dL (11.5-14.8); LYMPHOCYTES # (AUTO) 1.2 /CMM (0.8-4.8); LYMPHOCYTES % (AUTO) 25.6 % (20.0-44.0); MEAN CORPUSCULAR HGB CONC 32 g/dl (31.0-36.0); MEAN CORPUSCULAR VOLUME 93 fL (82-100); MONOCYTES # (AUTO) 0.5 /CMM (0.1-1.30); MONOCYTES % (AUTO) 11.7 % (2.0-12.0); NEUTROPHILS # (AUTO) 2.5 /CMM (1.8-8.9); NEUTROPHILS % (AUTO) 55.6 % (43.0-81.0); PLATELET COUNT (AUTO) 168 /CMM (150-450); RED BLOOD CELL COUNT(AUTO) 4.41 MIL/uL (4.0-5.2); WHITE BLOOD COUNT (AUTO) 4.6 K/uL (4.3-11.0)
[2019-04-15 23:50] LABS: ALBUMIN 2.9 g/dL (3.4-5.0); BILIRUBIN,TOTAL 0.6 mg/dL (0.2-1.0); CALCIUM, SERUM 8.2 mg/dL (8.5-10.1); CREATININE 3.2 mg/dL (0.6-1.3); PHOSPHORUS 4.6 mg/dL (2.5-4.9); POTASSIUM 4.5 mmol/L (3.5-5.1); TOTAL PROTEIN, SERUM 6.3 g/dL (6.4-8.2)
[2019-04-16] MEDS: ALBUTEROL FS 2.5 MG/0.5 ML VIAL.NEB NEB SCH ×4 (01:53→19:55)
--- NOTE | 2019-04-16 05:00 | NUR ---
MS RN CLOSING NOTES: PATIENT' S HEMODYNAMICS AND RESPIRATORY STATUS ARE STABLE. NO C/O PAIN. NO SOB NOTED. PATIENT STATES THAT SHE FEELS BETTER NOW. BED IN LOW AND LOCKED POSITION. CALL LIGHT WITHIN REACH.
[2019-04-16 07:18] LABS: BASOPHILS % (AUTO) 0.4 % (0.0-2.0); EOSINOPHILS % (AUTO) 6.8 % (0.0-6.0); HEMATOCRIT 42 % (33-45); HEMOGLOBIN 13.2 g/dL (11.5-14.8); LYMPHOCYTES % (AUTO) 23.6 % (20.0-44.0); MEAN CORPUSCULAR HGB CONC 32 g/dl (31.0-36.0); MEAN CORPUSCULAR VOLUME 93 fL (82-100); MONOCYTES # (AUTO) 0.5 /CMM (0.1-1.30); NEUTROPHILS # (AUTO) 2.3 /CMM (1.8-8.9); NEUTROPHILS % (AUTO) 56.2 % (43.0-81.0); PLATELET COUNT (AUTO) 163 /CMM (150-450); RED BLOOD CELL COUNT(AUTO) 4.46 MIL/uL (4.0-5.2); WHITE BLOOD COUNT (AUTO) 4.1 K/uL (4.3-11.0)
[2019-04-16 07:24] LABS: CALCIUM, SERUM 8.2 mg/dL (8.5-10.1); CREATININE 2.9 mg/dL (0.6-1.3); POTASSIUM 4.5 mmol/L (3.5-5.1)
--- NOTE | 2019-04-16 07:38 | NUR ---
M/S RN OPENING NOTES RECEIVED PT ON BED, A/O X 4 AND ABLE TO MAKE NEEDS KNOWN, RESPONSIVE TO ALL STIMULI. RESPIRATION EVEN AND NON LABORED WITH NO PRESENCE OF SHORTNESS OF BREATH, ON O2 AT 2LPM VIA NASAL CANNULA AND ABLE TO TOLERATE WELL. DENIES PAIN AND DISCOMFORT. ABDOMEN SOFT AND NON DISTENDED WITH ACTIVE BOWEL SOUNDS, BEDSIDE COMMODE PRESENT. SKIN WARM TO TOUCH, INTACT AND DRY. NO IV ACCESS, PER REPORT PATIENT WAS HARD STICK AND REFUSED IV INSERTION D/T MULTIPLE ATTEMPTS, NO IVF ORDERED. PLACED CALL LIGHT WITHIN REACH FOR SAFETY. WILL CONTINUE TO EVALUATE CARE
[2019-04-16 08:00] VITALS: BP 107/74
[2019-04-16] MEDS: ENOXAPARIN SODIUM 120 MG/0.8 ML DISP.SYRIN SQ SCH (08:07)
[2019-04-16] MEDS: hydrALAZINE HCL 25 MG TABLET PO SCH ×3 (08:08→16:32)
[2019-04-16] MEDS: ISOSORBIDE MONONITRATE 20 MG TABLET PO SCH ×3 (08:08→16:31)
[2019-04-16] MEDS: MULTIVIT W/MINERALS 1 TAB TABLET PO SCH (08:08)
[2019-04-16] MEDS: CARVEDILOL 6.25 MG TABLET PO SCH (08:08)
[2019-04-16] MEDS: ASPIRIN 81 MG TAB.CHEW PO SCH (08:09)
[2019-04-16] MEDS: AZITHROMYCIN 250 MG TABLET PO SCH (08:09)
[2019-04-16 09:02] LABS: ABG BASE EXCESS -7.2 mmol/L; ABG OXYGEN SATURATION 89.4 % (92.0-98.5); ABG PCO2 38.3 mmHg (35.0-45.0); ABG PH 7.302 (7.350-7.450); ABG PO2 60.3 mmHg (75.0-100.0); AaDO2 43.6 mmHg; COHb 0.9 % (0.5-1.5); MetHb 0.4 % (0.0-1.5); O2Hb 88.2 % (94.0-97.0); SITE, ABG Right Radial; VENT MODE, BG RA
--- NOTE | 2019-04-16 10:00 | NUR ---
M/S RN NOTES PATIENT REQUESTED TO SLEEP FOR NOW CAUSE SHE WASN'T ABLE TO SLEEP LAST NIGHT. WARM ENVIRONMENT PREFERRED, DIM LIGHT AND CLOSED BLINDS. PATIENT LEFT ASLEEP.
[2019-04-16] MEDS: GUAIFENESIN/D-METHORPHAN HB 5 ML UDC PO PRN ×2 (12:04→16:34)
--- NOTE | 2019-04-16 13:00 | NUR ---
M/S RN NOTES INFORMED PATIENT REGARDING NEW ORDER OF CT CHEST WITH NO CONTRAST. CONCERNS FOR STAYING SUPINE AND PRONE QUESTIONED AND STATED THAT SHE HAS BACK PAIN MOST OF THE TIME AND CANNOT LYE FLAT D/T PRESENCE OF SOB. RADIOLOGY NESTOR INFORMED.
[2019-04-16 16:00] VITALS: BP 119/65
--- NOTE | 2019-04-16 18:17 | NUR ---
M/S RN CLOSING NOTES PATIENT A/O X 4, RESPONSIVE TO ALL STIMULI AND ABLE TO MAKE NEEDS KNOWN. RESPIRATION EVEN AND NON LABORED WITH NO ACUTE RESPIRATORY DISTRESS, SOB PRESENT WHEN LYING FLAT. NON PRODUCTIVE COUGH NOTED TO PATIENT, ENCOURAGED TO INCREASE ORAL FLUID INTAKE AND VERBALIZED UNDERSTANDING. COUGH SYRUP GIVEN ORDERED. ON OXYGEN AT 2LPM VIA NASAL CANNULA SATING 95%. ABDOMEN SOFT AND NON DISTENDED WITH ACTIVE BOWEL SOUNDS, NO BM TODAY WITH URGE TO DO SO. SKIN WARM TO TOUCH, DRY AND INTACT. NO IV SITE PRESENT. DENIES PAIN AND DISCOMFORT. ALL CONCERNS ATTENDED. PLACED CALL LIGHT WITHIN REACH TO ENSURE SAFETY AT ALL TIMES. ENDORSED PATIENT CARE TO NEXT SHIFT.
--- NOTE | 2019-04-16 19:20 | NUR ---
CHANGE OF SHIFT REPORT Patient is awake, in bed chair position. Stable oxygen saturation on RA. Patient requesting sleeping medication as late 11:00 PM. Education provided on possible side effect, verbalized understanding. Instructed to use call light for assistance, verbalized understanding.
[2019-04-16 20:00] VITALS: BP 130/59
[2019-04-16] MEDS: ZOLPIDEM TARTRATE 5 MG TABLET PO PRN (22:02)
[2019-04-17] MEDS: ALBUTEROL FS 2.5 MG/0.5 ML VIAL.NEB NEB SCH ×6 (01:36→23:00)
--- NOTE | 2019-04-17 06:25 | NUR ---
CHANGE OF SHIFT REPORT Stable oxygen saturation on 2L via NC, denies SOB at rest and with exertion. Neb ATC per RT. On PO abx as scheduled with no adverse side effect, VSS. Slept well with PRN Ambien. Chest CT pending result. Maintained safety.
[2019-04-17 07:25] LABS: CALCIUM, SERUM 8.2 mg/dL (8.5-10.1); CREATININE 2.7 mg/dL (0.6-1.3); POTASSIUM 4.4 mmol/L (3.5-5.1)
--- NOTE | 2019-04-17 07:50 | NUR ---
M/S RN NOTES PATIENT RESTING, LYING IN BED, FAMILY AT BEDSIDE. PATIENT ON NASAL CANULA, 02 AT 2L, TOLERATING WELL. NO RESPIRATORY DISTRESS NOTED. NO C/O PAIN AT THIS TIME. SKIN WARM TO TOUCH. PATIENT'S NEEDS ATTENDED. BED ON LOWEST LOCKED POSTION, CALL LIGHT WITHIN REACH. WILL CONTINUE TO MONITOR.
[2019-04-17 07:55] LABS: BASOPHILS % (AUTO) 0.5 % (0.0-2.0); EOSINOPHILS % (AUTO) 6.5 % (0.0-6.0); HEMATOCRIT 42 % (33-45); HEMOGLOBIN 13.4 g/dL (11.5-14.8); LYMPHOCYTES % (AUTO) 21.4 % (20.0-44.0); MEAN CORPUSCULAR HGB CONC 32 g/dl (31.0-36.0); MEAN CORPUSCULAR VOLUME 93 fL (82-100); MONOCYTES # (AUTO) 0.6 /CMM (0.1-1.30); MONOCYTES % (AUTO) 12.3 % (2.0-12.0); NEUTROPHILS # (AUTO) 2.9 /CMM (1.8-8.9); NEUTROPHILS % (AUTO) 59.3 % (43.0-81.0); PLATELET COUNT (AUTO) 163 /CMM (150-450); RED BLOOD CELL COUNT(AUTO) 4.49 MIL/uL (4.0-5.2); WHITE BLOOD COUNT (AUTO) 4.9 K/uL (4.3-11.0)
[2019-04-17 08:00] VITALS: BP 112/83
[2019-04-17] MEDS: MULTIVIT W/MINERALS 1 TAB TABLET PO SCH (08:45)
[2019-04-17] MEDS: ISOSORBIDE MONONITRATE 20 MG TABLET PO SCH ×3 (08:45→17:37)
[2019-04-17] MEDS: hydrALAZINE HCL 25 MG TABLET PO SCH ×3 (08:46→17:37)
[2019-04-17] MEDS: AZITHROMYCIN 250 MG TABLET PO SCH (08:47)
[2019-04-17] MEDS: ASPIRIN 81 MG TAB.CHEW PO SCH (08:47)
[2019-04-17] MEDS: IPRATROPIUM NEB FS 0.5 MG/2.5 ML AMPUL.NEB NEB SCH ×4 (11:17→23:00)
[2019-04-17] MEDS: METOCLOPRAMIDE HCL 10 MG TABLET PO SCH ×3 (11:29→23:00)
[2019-04-17] MEDS: FAMOTIDINE (20 MG) 20 MG TABLET PO SCH ×2 (11:29→20:30)
[2019-04-17] MEDS: APIXABAN 2.5 MG TABLET PO SCH ×2 (11:33→17:44)
[2019-04-17] MEDS: GUAIFENESIN/D-METHORPHAN HB 5 ML UDC PO PRN (12:26)
[2019-04-17 16:00] VITALS: BP 116/80
--- NOTE | 2019-04-17 18:37 | NUR ---
M/S RN NOTES PATIENT AWAKE IN BED WITH FAMILY AT BEDSIDE. NO RESPIRATORY DISTRESS NOTED, NO C/O PAIN AT THIS TIME. PATIENT'S NEEDS ATTENDED. BED ON LOWEST LOCKED POSITION, CALL LIGHT WITHIN REACH. WILL ENDORSE TO ONCOMING NURSE.
--- NOTE | 2019-04-17 20:01 | NUR ---
MS RN OPENING NOTES: RECEIVED PT ON ROOM AIR AND IS TOLERATING WELL. HOB ELEVATED. 2 FAMILY MEMBERS AT BEDSIDE. PT A/OX4. NO SOB NOTED. NO S/S OF DISTRESS. NO IV NOTED AT THIS TIME. BED KEPT IN LOW, LOCKED POSITION, AND SIDE RAILS X 2UP. WILL CONTINUE TO MONITOR PT.
[2019-04-17 20:43] VITALS: BP 103/75
--- NOTE | 2019-04-17 21:52 | NUR ---
MS RN NOTES: INFORMED CIRCUIT BREAKER SUPERVISOR TAMMY THAT PT IS REQUESTING FOR AMBIEN 10MG THAT IT WHAT SHE TAKES HOME. THE 5MG THE PAST NIGHTS HAVE NOT BEEN WORKING FOR HER. GOT ORDER FOR AMBIEN 10MG PO QHS PRN.
[2019-04-17] MEDS ORDERED: ZOLPIDEM TARTRATE 10 MG TABLET PO PRN (22:00)
--- NOTE | 2019-04-17 22:14 | NUR ---
MS RN NOTES: PT REQUESTING FOR SLEEPING AID. PT WAS ADMINISTERED AMBIEN 10MG PO. ALSO, PT REQUESTS THAT RT STILL GIVES THE TREATMENT TO HER REGARDLESS IF SHE'S SLEEPING.
[2019-04-18] MEDS: IPRATROPIUM NEB FS 0.5 MG/2.5 ML AMPUL.NEB NEB SCH ×5 (04:07→19:30)
[2019-04-18] MEDS: ALBUTEROL FS 2.5 MG/0.5 ML VIAL.NEB NEB SCH ×5 (04:07→19:30)
[2019-04-18] MEDS: METOCLOPRAMIDE HCL 10 MG TABLET PO SCH ×3 (06:36→17:42)
[2019-04-18] MEDS: GUAIFENESIN/D-METHORPHAN HB 5 ML UDC PO PRN (06:41)
--- NOTE | 2019-04-18 07:25 | NUR ---
MS RN CLOSING NOTES: ALL NEEDS WERE ATTENDED AND ANTICIPATED FOR. PT KEPT CLEAN, DRY, AND COMFORTABLE. PT WAS GIVEN COUGH MEDICINE ORDERED. PT SAYING IT IS NOT WORKING ALTHOUGH SHE STILL WANTS IT TO COVER FOR NOW. NO IV NOTED AT THIS PT. HOB ELEVATED AT ALL TIMES. BED KEPT IN LOW, LOCKED POSITION, AND SIDE RAILS X 2UP. ENDORSED TO AM NURSE FOR JEAN PIERRE.
[2019-04-18] MEDS ORDERED: PANTOPRAZOLE 40 MG TABLET.DR PO SCH (07:30)
[2019-04-18 07:50] LABS: BASOPHILS % (AUTO) 0.5 % (0.0-2.0); EOSINOPHILS % (AUTO) 6.4 % (0.0-6.0); HEMATOCRIT 40 % (33-45); HEMOGLOBIN 13.1 g/dL (11.5-14.8); LYMPHOCYTES # (AUTO) 0.9 /CMM (0.8-4.8); LYMPHOCYTES % (AUTO) 20.9 % (20.0-44.0); MEAN CORPUSCULAR HGB CONC 33 g/dl (31.0-36.0); MEAN CORPUSCULAR VOLUME 92 fL (82-100); MONOCYTES # (AUTO) 0.5 /CMM (0.1-1.30); MONOCYTES % (AUTO) 12.3 % (2.0-12.0); NEUTROPHILS # (AUTO) 2.5 /CMM (1.8-8.9); NEUTROPHILS % (AUTO) 59.9 % (43.0-81.0); PLATELET COUNT (AUTO) 157 /CMM (150-450); RED BLOOD CELL COUNT(AUTO) 4.34 MIL/uL (4.0-5.2); WHITE BLOOD COUNT (AUTO) 4.2 K/uL (4.3-11.0)
--- NOTE | 2019-04-18 07:53 | NUR ---
MS RN NOTES PATIENT RECEIVED RESTING INSIDE ROOM. AWAKE, ALERT AND ORIENTED, VERBALLY RESPONSIVE AND RESPONDS TO VERBAL AND TACTILE STIMULI. BREATHING EVEN AND UNLABORED. NO ACUTE DISTRESS. DENIES ANY PAIN OR DISCOMFORT. WILL CONTINUE TO MONITOR. BED LOCKED AND IN LOW POSITION. BILATERAL UPPER SIDE RAILS UP AND LOCKED. CALL LIGHT WITHIN EASY REACH
[2019-04-18 07:58] LABS: CALCIUM, SERUM 8.3 mg/dL (8.5-10.1); CREATININE 2.6 mg/dL (0.6-1.3); POTASSIUM 4.4 mmol/L (3.5-5.1)
[2019-04-18] MEDS ORDERED: ASPI-1169 PO (08:31)
[2019-04-18] MEDS ORDERED: PANT40TA2 PO (08:31)
[2019-04-18] MEDS ORDERED: METO10TA3 PO (08:31)
[2019-04-18] MEDS ORDERED: ALBU8.5H8 INH (08:31)
[2019-04-18] MEDS ORDERED: APIX2.5T PO (08:31)
[2019-04-18] MEDS: ISOSORBIDE MONONITRATE 20 MG TABLET PO SCH ×3 (09:00→17:00)
[2019-04-18] MEDS: hydrALAZINE HCL 25 MG TABLET PO SCH ×3 (09:00→17:00)
[2019-04-18] MEDS: ASPIRIN 81 MG TAB.CHEW PO SCH (09:32)
[2019-04-18] MEDS: AZITHROMYCIN 250 MG TABLET PO SCH (09:32)
[2019-04-18] MEDS: FAMOTIDINE (20 MG) 20 MG TABLET PO SCH (09:32)
[2019-04-18] MEDS: MULTIVIT W/MINERALS 1 TAB TABLET PO SCH (09:32)
[2019-04-18] MEDS: APIXABAN 2.5 MG TABLET PO SCH ×2 (09:33→17:41)
[2019-04-18] MEDS ORDERED: DIATR MEGLU/DIATRIZOATE SODIUM 120 ML BOTTLE (GASTROGRAPHIN) ONE (09:42)
[2019-04-18] MEDS ORDERED: BARIUM SULFATE 98% 135 ML SUSP.RECON PO ONE (09:42)
--- NOTE | 2019-04-18 16:57 | NUR ---
MS RN NOTES WALKER PROVIDED TO PATIENT
[2019-04-18 17:00] VITALS: BP 110/60
--- NOTE | 2019-04-18 18:58 | NUR ---
MS RN NOTES PATIENT TO DISCHARGE HOME TODAY. DISCHARGE INSTRUCTIONS AND EDUCATION PROVIDED AND PATIENT VERBALIZED UNDERSTANDING. ALL BELONGINGS COMPLETE ON DISCHARGE, NO REPORT OF MISSING INVENTORY, NO IV ON PATIENT, ID BAND REMOVED. NO NEW SKIN BREAKDOWN ON DISCHARGE. PATIENT LEFT UNIT AT 1858 VIA WHEELCHAIR, ACCOMPANIED BY NURSING STAFF. PATIENT LEFT IN STABLE CONDITION. NO ACUTE DISTRESS, DENIES ANY PAIN OR DISCOMFORT. WRITTEN PRESCRIPTION GIVEN TO PATIENT. LEFT HOSPITAL PREMISES VIA PRIVATE CAR. MD AWARE OF DISCHARGE
== END 2019-04-18 19:00 | disposition home or self-care (01) | DRG 346 ==
LOC: ER 14:05 → TELE 16:22 → MED 04-15 08:53
PROVIDERS: ADMIT Nurse Practitioner Acute Care; ATTEND Student in an Organized Health Care Education/Training Program
DX: M34.9 Systemic sclerosis, unspecified (principal); N17.0 Acute kidney failure with tubular necrosis; I50.33 Acute on chronic diastolic (congestive) heart failure; J84.9 Interstitial pulmonary disease, unspecified; I82.411 Acute embolism and thrombosis of right femoral vein; I27.20 Pulmonary hypertension, unspecified; N18.4 Chronic kidney disease, stage 4 (severe); I13.0 Hypertensive heart and chronic kidney disease with heart failure and stage 1 through stage 4 chronic kidney disease, or unspecified chronic kidney disease; E66.01 Morbid (severe) obesity due to excess calories; E44.1 Mild protein-calorie malnutrition; Z68.41 Body mass index [BMI] 40.0-44.9, adult; M10.9 Gout, unspecified; Z87.891 Personal history of nicotine dependence; Z79.01 Long term (current) use of anticoagulants; G47.33 Obstructive sleep apnea (adult) (pediatric); K22.4 Dyskinesia of esophagus; N05.9 Unspecified nephritic syndrome with unspecified morphologic changes; J43.9 Emphysema, unspecified; R13.10 Dysphagia, unspecified; J40 Bronchitis, not specified as acute or chronic
CPT/HCPCS: 36415; 36600; 71045-TC; 71250-TC; 74230-TC; 78582; 80048-TC; 80053-TC; 80076-TC; 82803-TC; 83735-TC; 83880; 84100-TC; 84484-TC; 85025-TC; 85730-TC; 87040-TC; 87081-TC; 93970-TC; 94799-TC; 97116-TC; 97530-TC; A9540; A9567; G0378; J0456; J1644; J1650; J1940; J7050; J7060; J8597; Q9963

== ENCOUNTER 2019-07-05 18:24 | Inpatient (IN) | payer MEDICAID ==
[~2019-07-05] VITALS: Ht 170.2 cm; Wt 114.8 kg
[~2019-07-05 18:24] MED LIST changes: +ALBU8.5H8 INH; -ALLO100T PO; +APIX2.5T PO; -ARIP2TAB3 PO; +ASPI-1169 PO; -BUPR100T5 PO; -CALC667C PO; -CARV3.122 PO; +CARV6.252 PO; +FURO-144 PO; -FURO40TA5 PO; +HYDR-4076 PO; +ISOS20TA6 PO; +METO10TA3 PO; -MULT-1119 PO; +MULT-447 PO; +OXYC-133 PO; +PANT40TA2 PO
--- NOTE | 2019-07-05 18:25 | NUR ---
PT BIB SON C/O CHEST PAIN, NON RADIATING SHARP LIKE PAIN, ON ESRD LAST HD 06/28/19, PT IS AAOX4, NOT IN RESPIRATORY DISTRESS, HOOKED TO MONITOR. KEPT RESTED AND COMFORTABLE, WILL CONTINUE TO MONITOR.
--- NOTE | 2019-07-05 18:52 | NUR ---
SEEN AND EXAMINED BY .
--- NOTE | 2019-07-05 19:12 | NUR ---
BLOOD DRAWNED AND SENT TO LAB.
[2019-07-05 19:19] LABS: BASOPHILS # (AUTO) 0.1 /CMM (0.0-0.2); BASOPHILS % (AUTO) 0.8 % (0.0-2.0); EOSINOPHILS % (AUTO) 2.4 % (0.0-6.0); HEMATOCRIT 36 % (33-45); HEMOGLOBIN 11.4 g/dL (11.5-14.8); LYMPHOCYTES % (AUTO) 14.6 % (20.0-44.0); MEAN CORPUSCULAR HGB CONC 32 g/dl (31.0-36.0); MEAN CORPUSCULAR VOLUME 94 fL (82-100); MONOCYTES # (AUTO) 0.7 /CMM (0.1-1.30); MONOCYTES % (AUTO) 9.8 % (2.0-12.0); NEUTROPHILS # (AUTO) 4.9 /CMM (1.8-8.9); NEUTROPHILS % (AUTO) 72.4 % (43.0-81.0); PLATELET COUNT (AUTO) 246 /CMM (150-450); WHITE BLOOD COUNT (AUTO) 6.7 K/uL (4.3-11.0)
--- NOTE | 2019-07-05 19:20 | NUR ---
PICC LINE NURSE AT BEDSIDE.
[2019-07-05 19:26] LABS: CALCIUM, SERUM 9.5 mg/dL (8.5-10.1); CARBON DIOXIDE 23 mmol/L (21-32); CHLORIDE 103 mmol/L (98-107); CREATININE 5.2 mg/dL (0.6-1.3); GLUCOSE 99 mg/dL (74-106); POTASSIUM 4.6 mmol/L (3.5-5.1); SODIUM SERUM 138 mmol/L (136-145); UREA NITROGEN, BLOOD 42 mg/dL (7-18)
--- NOTE | 2019-07-05 19:28 | NUR ---
REPORT GIVEN TO JUAN MC FOR JEAN PIERRE.
--- NOTE | 2019-07-05 19:45 | NUR ---
CALLED FOR TELE BED
--- NOTE | 2019-07-05 20:13 | NUR ---
BED ASSIGNMENT 320-2
[2019-07-05] MEDS ORDERED: ALBUTEROL SULFATE INH 18 GM HFA.AER.AD IH PRN (20:30)
--- NOTE | 2019-07-05 20:35 | NUR ---
Report given to JENNIFER MARTINEZ for JEAN PIERRE.
--- NOTE | 2019-07-05 20:48 | NUR ---
WATER PURIFICATION CHEMIST OPENING NOTES: RECEIVED PT ON 2LPM VIA NC AND IS TOLERATING WELL. SON AT BEDSIDE. NO SOB NOTED. NO S/S OF DISTRESS. PT HAS ASHER MIDLINE AND IS PATENT AND INTACT. CURRENTLY H/L. PT TO BE PLACED ON TELE MONITOR. BED KEPT IN LOW, LOCKED POSITION, AND SIDE RAILS X 2UP. WILL CONTINUE TO MONITOR PT. Addendum: 07/05/19 at 2234 by MIKE CAGLE RN PT ALSO HAS L IJ PERMACATH PLACEMENT NOTED CLEAN AND DRY.
[2019-07-05 20:50] VITALS: BP 129/67
[2019-07-05] MEDS ORDERED: MAGNESIUM HYDROXIDE 30 ML UDC PO PRN (21:00)
[2019-07-05] MEDS ORDERED: Z GUARD REMEDY 2 OZ OINT TP PRN (21:00)
[2019-07-05] MEDS ORDERED: MAG HYDROX/AL HYDROX/SIMETH 30 ML UDC PO PRN (21:00)
[2019-07-05] MEDS ORDERED: ALBUTEROL FS 2.5 MG/3 ML VIAL.NEB NEB PRN (21:30)
[2019-07-05] MEDS ORDERED: DIGO125T PO (21:39)
[2019-07-05] MEDS ORDERED: ONDA4TAB5 PO (21:39)
[2019-07-05] MEDS ORDERED: ZOLP10TA2 PO (21:39)
[2019-07-05] MEDS ORDERED: MACI10TA PO (21:39)
[2019-07-05] MEDS ORDERED: ALLO100T PO (21:39)
[2019-07-05] MEDS ORDERED: BUME1TAB9 PO (21:39)
[2019-07-05] MEDS ORDERED: ASPI-1169 PO (21:39)
[2019-07-05] MEDS ORDERED: SILD20TA PO (21:42)
[2019-07-05] MEDS ORDERED: DOCU-141 PO (21:42)
--- NOTE | 2019-07-05 21:45 | NUR ---
FREIGHT UNLOADER NOTES: INFORMED DR. KAPLAN THAT MEDICATIONS THAT WERE ON MED RECON WERE WRONG. INPUTTED CURRENT MEDICATIONS THAT PT IS TAKING. PER DR. KAPLAN, HE IS AWARE AND WILL REVIEW. ALSO INFORMED HIM THAT PT USUALLY USES CPAP MACHINE AT NIGHT. PT REQUESTING FOR SCHEDULED BREATHING TXS THEY HELP HER. CAN ORDER SCHEDULED BREATHINGS TXS WELL. Addendum: 07/05/19 at 2226 by MIKE CAGLE RN OK TO ORDER ALBUTEROL AND VENTOLIN Q6HR PRN TREATMENTS.
[2019-07-05] MEDS: ONDANSETRON HCL/PF 4 MG/2 ML VIAL IVP PRN (21:50)
--- NOTE | 2019-07-05 21:50 | NUR ---
WAGON WINDER NOTES: PT FEELS NAUSEOUS. PT WAS ADMINISTERED ZOFRAN 4MG IV. WILL CONTINUE TO MONITOR.
[2019-07-05] MEDS ORDERED: ALBUTEROL FS 2.5 MG/0.5 ML VIAL.NEB NEB PRN (22:30)
[2019-07-05] MEDS ORDERED: IPRATROPIUM NEB FS 0.5 MG/2.5 ML AMPUL.NEB NEB PRN (22:30)
--- NOTE | 2019-07-05 22:56 | NUR ---
FITNESS TRAINER NOTES: DR. KAPLAN AT BEDSIDE.
[2019-07-06] VITALS: BP 98/63
[2019-07-06] MEDS ORDERED: METOCLOPRAMIDE HCL 10 MG TABLET PO SCH
--- NOTE | 2019-07-06 00:24 | NUR ---
HARD ROCK DRILL OPERATOR NOTES: NOTIFIED DR. KAPLAN ABOUT OPSUMIT 10MG IN MED RECON; PER DR. KAPLAN, HOSPITAL DOES NOT HAVE IT AND CAN FOLLOW UP WITH PHARMACY IN AM.
--- NOTE | 2019-07-06 00:26 | NUR ---
KAT MARTINEZ NOTES: PER CHARLIE BROWN TO IN MED THAT PT IS NO LONGER TAKING. Addendum: 07/06/19 at 0123 by MIKE CAGLE RN PT NO LONGER TAKING REGLAN, ISOSORBIDE, LASIX, BRODERICKQUIS, COREG. Addendum: 07/06/19 at 0548 by MIKE CAGLE RN also, pt no longer taking hydralazine as well.
[2019-07-06] MEDS ORDERED: DOCUSATE SODIUM 100 MG CAPSULE PO PRN (00:30)
[2019-07-06 04:00] VITALS: BP 100/68
--- NOTE | 2019-07-06 05:42 | NUR ---
STEREOTYPER NOTES: PT IS SAYING THAT SHE CAME WITH GLASSES. CALLED ER. WHEN WE DID OUR OWN BELONGINGS CHECKLIST, WE DID NOT FIND ANY GLASSES. SHE DID NOT HAVE ANY COMING UP TO THE FLOOR AT ALL. HAVING ER DOUBLE CHECK AGAIN. PT IS SAYING IT IS BEIGE COLORED
--- NOTE | 2019-07-06 05:50 | NUR ---
MFG ASSOC NOTES: SPOKE WITH STAFF ASSISTANT NI, AND SAID THAT PER ARACELI SHAW, HE DOES NOT RECALL IF HE SAW THE GLASSES ; WHEN WE DID OUR INITIAL BELONGINGS LIST, THERE WERE NO GLASSES TO BE FOUND. INFORMED PT TO HAVE FAMILY MEMBER CHECK IN CAR OR AT HOME.
[2019-07-06] MEDS ORDERED: ONDANSETRON 4 MG TAB.RAPDIS PO SCH (06:00)
[2019-07-06] MEDS ORDERED: Medication Not On Formulary EA (Ondansetron Hcl (Zofran) 1 TAB) PO SCH (06:00)
--- NOTE | 2019-07-06 06:07 | NUR ---
CUSHION MAKER NOTES: MEDS COLLECTED; PT ACKNOWLEDGED. WILL TAKE DOWN TO PHARMACY.
[2019-07-06 06:18] LABS: BASOPHILS % (AUTO) 0.6 % (0.0-2.0); EOSINOPHILS % (AUTO) 3.2 % (0.0-6.0); HEMATOCRIT 30 % (33-45); HEMOGLOBIN 9.8 g/dL (11.5-14.8); LYMPHOCYTES % (AUTO) 17.8 % (20.0-44.0); MEAN CORPUSCULAR HGB CONC 33 g/dl (31.0-36.0); MEAN CORPUSCULAR VOLUME 93 fL (82-100); MONOCYTES # (AUTO) 0.8 /CMM (0.1-1.30); MONOCYTES % (AUTO) 13.1 % (2.0-12.0); NEUTROPHILS # (AUTO) 3.8 /CMM (1.8-8.9); NEUTROPHILS % (AUTO) 65.3 % (43.0-81.0); PLATELET COUNT (AUTO) 216 /CMM (150-450); RED BLOOD CELL COUNT(AUTO) 3.22 MIL/uL (4.0-5.2); WHITE BLOOD COUNT (AUTO) 5.8 K/uL (4.3-11.0)
--- NOTE | 2019-07-06 06:34 | NUR ---
DIP BRAZIER CLOSING NOTES: ALL NEEDS WERE ATTENDED AND ANTICIPATED FOR. PT KEPT CLEAN, DRY, AND COMFORTABLE. PT REMAINS ON 2LPM VIA NC AND IS TOLERATING WELL. SON AT BEDSIDE. ASHER MIDLINE HAS BEEN FLUSHED AND IS PATENT AND INTACT. PT ALSO HAS L IJ PERMACATH AND IS KEPT CLEAN AND DRY AND INTACT. CURRENTLY H/L. BED KEPT IN LOW, LOCKED POSITION, AND SIDE RAILS X 2UP. WILL ENDORSE TO AM NURSE FOR JEAN PIERRE. Addendum: 07/06/19 at 0635 by MIKE CAGLE RN PT ON TELE BOX AND READING SHOWS SR 80 WITH FIRST DEGREE AV BLOCK .
[2019-07-06 06:39] LABS: CALCIUM, SERUM 8.9 mg/dL (8.5-10.1); CREATININE 5.2 mg/dL (0.6-1.3); MAGNESIUM 1.8 mg/dL (1.8-2.4); PHOSPHORUS 4.8 mg/dL (2.5-4.9); POTASSIUM 4.2 mmol/L (3.5-5.1)
[2019-07-06 08:00] VITALS: BP 105/84
--- NOTE | 2019-07-06 08:11 | NUR ---
TREE SURGEON HELPER OPENING NOTES Patient received on 2L nasal cannula, no sob noted, patient remains a/o x4 at this time and denies pain. Patient remains with a left upper arm midline. Left IF permacath is not working at this time per report. Bed at the lowest setting, call light within reach, side rails up x2.
[2019-07-06] MEDS ORDERED: oxyCODONE/APAP (5/325 MG) 1 UDTAB TABLET PO PRN (08:30)
[2019-07-06] MEDS ORDERED: CARVEDILOL 6.25 MG TABLET PO SCH (09:00)
[2019-07-06] MEDS ORDERED: FUROSEMIDE 40 MG TABLET PO SCH (09:00)
[2019-07-06] MEDS ORDERED: ISOSORBIDE MONONITRATE 20 MG TABLET PO SCH (09:00)
[2019-07-06] MEDS ORDERED: hydrALAZINE HCL 25 MG TABLET PO SCH (09:00)
[2019-07-06] MEDS ORDERED: APIXABAN 2.5 MG TABLET PO SCH (09:00)
[2019-07-06] MEDS ORDERED: ASPIRIN 81 MG TAB.CHEW PO SCH (09:00)
[2019-07-06] MEDS: BUMETANIDE (1 MG) 1 MG TABLET PO SCH ×2 (09:19→17:00)
[2019-07-06] MEDS: PANTOPRAZOLE 40 MG TABLET.DR PO SCH (09:21)
[2019-07-06] MEDS: ALLOPURINOL 100 MG TABLET PO SCH (09:21)
[2019-07-06] MEDS: DIGOXIN 0.125 MG TABLET PO SCH (09:21)
[2019-07-06] MEDS: SILDENAFIL CITRATE 20 MG TABLET PO SCH ×3 (09:21→17:00)
[2019-07-06] MEDS: MULTIVIT W/MINERALS 1 TAB TABLET PO SCH (09:21)
[2019-07-06] MEDS: ASPIRIN 81 MG TAB.CHEW PO SCH (09:21)
[2019-07-06] MEDS: ONDANSETRON HCL/PF 4 MG/2 ML VIAL IVP PRN ×2 (10:04→19:38)
[2019-07-06] MEDS ORDERED: EPOETIN ALFA (10,000 UNIT) 10,000 UNIT/ML VIAL IV ONE (12:00)
[2019-07-06] MEDS ORDERED: ALTEPLASE CATHFLO 2 MG/VIAL XX ONE (13:30)
[2019-07-06] MEDS: OPSUMIT 10 MG PO SCH (14:35)
[2019-07-06 16:12] VITALS: BP 107/55
[2019-07-06] MEDS ORDERED: ZOLPIDEM TARTRATE 10 MG TABLET PO SCH (18:00)
--- NOTE | 2019-07-06 18:05 | NUR ---
RN MS CLOSING NOTES Patient remains on 2L nasal cannula, no sob noted, patient denies pain at this time. Patient remains a/o x4 and remains lying down comfortably on bed. Patient remains on tele. Left UA midline heplock present. Patient on HD today and is still ongoing at this time. Patient missed the last medication of the shift due to HD going. Bed at the lowest setting, call light within reach, side rails up x2. Will give report to CM MARTINEZ for JEAN PIERRE bedside. Addendum: 07/06/19 at 1815 by DANIEL EATON RN CORRECTION - Patient is not on tele.
--- NOTE | 2019-07-06 19:30 | NUR ---
RECEIVED PATIENT IN BED AWAKE; UNDERGOING DIALYSIS. AO X 3, ABLE TO MAKE NEEDS KNOWN. NO ACUTE DISTRESS NOTED. DENIES ANY PAIN AT THIS TIME. ASHER MIDLINE INTACT;FLUSHED. LEFT IJ HD CATH BEING USE FOR DIALYSIS. SAFETY REMINDERS GIVEN. ON LOW BED WITH BILATERAL UPPER SIDE RAILS UP. CALL TERAN WITHIN EASY REACH. WILL CONTINUE TO MONITOR. SON AT BEDSIDE.
[2019-07-06 20:00] VITALS: BP_SYST 101; BP_SYST 118; BP_DIAS 62
--- NOTE | 2019-07-06 21:18 | NUR ---
DR. KAPLAN MADE AWARE THAT PATIENT'S NAUSEA DID NOT IMPROVE WITH ZOFRAN; WITH NEW ORDER TO GIVE ONE MORE DOSE OF ZOFRAN X 1; NOTED AND CARRIED OUT.
[2019-07-06] MEDS ORDERED: ONDANSETRON HCL/PF 4 MG/2 ML VIAL IV ONE (21:30)
[2019-07-07] MEDS: ZOLPIDEM TARTRATE 10 MG TABLET PO PRN ×2 (00:10→23:11)
--- NOTE | 2019-07-07 06:07 | NUR ---
PATIENT ASLEEP, EASILY AROUSABLE. RESPIRATIONS EVEN. NO SIGNS OF PAIN NOTED. PATIENT SLEPT WELL POST AMBIEN ADMINISTRATION. NEEDS ATTENDED. SAFETY PRECAUTIONS AND COMFORT MEASURE IN PLACE. WILL GIVE REPORT TO DAY SHIFT FOR CONTINUITY OF CARE.
--- NOTE | 2019-07-07 07:15 | NUR ---
MS RN OPENING NOTE RECEIVED REPORT FROM NOC SHIFT NURSE. PT ASLEEP IN BED, ON ROOM AIR, SATURATING WELL, RESPIRATIONS EASY AND UNLABORED, NO SIGNS OF RESPIRATORY DISTRESS NOTED. BED IN LOW POSITION, LOCKED, CALL LIGHT WITHIN REACH.
[2019-07-07] MEDS: PANTOPRAZOLE 40 MG TABLET.DR PO SCH (07:49)
[2019-07-07 08:08] VITALS: BP 86/53
[2019-07-07] MEDS: MULTIVIT W/MINERALS 1 TAB TABLET PO SCH (08:32)
[2019-07-07] MEDS: ASPIRIN 81 MG TAB.CHEW PO SCH (08:32)
[2019-07-07] MEDS: ALLOPURINOL 100 MG TABLET PO SCH (08:32)
[2019-07-07] MEDS: BUMETANIDE (1 MG) 1 MG TABLET PO SCH ×2 (08:33→16:17)
[2019-07-07] MEDS: DIGOXIN 0.125 MG TABLET PO SCH (08:33)
[2019-07-07] MEDS: SILDENAFIL CITRATE 20 MG TABLET PO SCH ×3 (08:39→16:17)
[2019-07-07] MEDS: OPSUMIT 10 MG PO SCH (09:46)
[2019-07-07 14:31] LABS: BASOPHILS % (AUTO) 0.7 % (0.0-2.0); EOSINOPHILS % (AUTO) 2.5 % (0.0-6.0); HEMATOCRIT 30 % (33-45); HEMOGLOBIN 9.9 g/dL (11.5-14.8); LYMPHOCYTES # (AUTO) 0.9 /CMM (0.8-4.8); LYMPHOCYTES % (AUTO) 16.3 % (20.0-44.0); MEAN CORPUSCULAR HGB CONC 33 g/dl (31.0-36.0); MEAN CORPUSCULAR VOLUME 92 fL (82-100); MONOCYTES # (AUTO) 0.6 /CMM (0.1-1.30); MONOCYTES % (AUTO) 10.6 % (2.0-12.0); NEUTROPHILS # (AUTO) 4.1 /CMM (1.8-8.9); NEUTROPHILS % (AUTO) 69.9 % (43.0-81.0); PLATELET COUNT (AUTO) 212 /CMM (150-450); RED BLOOD CELL COUNT(AUTO) 3.32 MIL/uL (4.0-5.2); WHITE BLOOD COUNT (AUTO) 5.8 K/uL (4.3-11.0)
[2019-07-07 14:46] LABS: CALCIUM, SERUM 8.2 mg/dL (8.5-10.1); CREATININE 3.6 mg/dL (0.6-1.3); POTASSIUM 4.3 mmol/L (3.5-5.1)
[2019-07-07 16:16] VITALS: BP 99/66
--- NOTE | 2019-07-07 16:22 | NUR ---
DIALYSIS NURSE AMAIRANI MARTINEZ PERFORMED DIALYSIS FROM 12:40- 15:40, 300ML OUTPUT.
--- NOTE | 2019-07-07 18:27 | NUR ---
RECEIVED CALL FROM NATHAN REDMOND WITH THE FOLLOWING ORDERS: -OBTAIN CONSENT FOR LAPAROSCOPIC VERSES OPEN PERITONEAL DIALYSIS CATHETER INSERTION. -NPO AFTER MIDNIGHT -HOLD ASPIRIN 07/08/19 0900 SURGEON: SINAN MENA.
--- NOTE | 2019-07-07 18:33 | NUR ---
OBTAINED CONSENT FOR LAPAROSCOPIC VERSES OPEN PERITONEAL DIALYSIS CATHETER INSERTION.
--- NOTE | 2019-07-07 18:44 | NUR ---
MS RN CLOSING NOTE PT AWAKE IN BED, ALERT AND ORIENTED X 4, ON ROOM AIR, SATURATING WELL, RESPIRATIONS EASY AND UNLABORED, NO SINGS OF RESPIRATORY DISTRESS NOTED. HD PERFORMED TODAY WITH 300ML OUTPUT, PT TOLERATED WELL. LEFT UPPER MIDLINE INTACT, PATENT. BED IN LOW POSITION, LOCKED, CALL LIGHT WITHIN REACH. PROVIDED SAFETY AND COMFORT TO PT THROUGHOUT SHIFT, ALL DUE MEDS GIVEN. WILL ENDORSE TO NOC SHIFT NURSE.
--- NOTE | 2019-07-07 19:30 | NUR ---
RECEIVED PATIENT IN BED AWAKE. AO X 3, ABLE TO MAKE NEEDS KNOWN. NO ACUTE DISTRESS NOTED. DENIES ANY PAIN AT THIS TIME. ASHER MIDLINE INTACT;FLUSHED. LEFT IJ HD CATH INTACT. SAFETY REMINDERS GIVEN. ON LOW BED WITH BILATERAL UPPER SIDE RAILS UP. CALL TERAN WITHIN EASY REACH. WILL CONTINUE TO MONITOR.
[2019-07-07 20:00] VITALS: BP 91/54
[2019-07-07 20:13] VITALS: BP 91/54
[2019-07-07] MEDS: ACETAMINOPHEN 325 MG TABLET PO PRN (23:10)
--- NOTE | 2019-07-08 06:30 | NUR ---
PATIENT ASLEEP, EASILY AROUSABLE. RESPIRATIONS EVEN. NO SIGNS OF PAIN NOTED. PATIENT SLEPT WELL POST AMBIEN ADMINISTRATION. NPO SINCE MIDNIGHT. NEEDS ATTENDED. SAFETY PRECAUTIONS AND COMFORT MEASURE IN PLACE. WILL GIVE REPORT TO DAY SHIFT FOR CONTINUITY OF CARE.
[2019-07-08 07:07] LABS: BASOPHILS % (AUTO) 0.4 % (0.0-2.0); EOSINOPHILS % (AUTO) 3.4 % (0.0-6.0); HEMATOCRIT 31 % (33-45); HEMOGLOBIN 10.1 g/dL (11.5-14.8); LYMPHOCYTES # (AUTO) 1.2 /CMM (0.8-4.8); MEAN CORPUSCULAR HGB CONC 33 g/dl (31.0-36.0); MEAN CORPUSCULAR VOLUME 94 fL (82-100); NEUTROPHILS # (AUTO) 4.1 /CMM (1.8-8.9); NEUTROPHILS % (AUTO) 63.2 % (43.0-81.0); PLATELET COUNT (AUTO) 177 /CMM (150-450); RED BLOOD CELL COUNT(AUTO) 3.28 MIL/uL (4.0-5.2); WHITE BLOOD COUNT (AUTO) 6.4 K/uL (4.3-11.0)
[2019-07-08] MEDS: PANTOPRAZOLE 40 MG TABLET.DR PO SCH (07:30)
[2019-07-08 07:36] LABS: CALCIUM, SERUM 8.5 mg/dL (8.5-10.1); CREATININE 4.1 mg/dL (0.6-1.3); POTASSIUM 4.1 mmol/L (3.5-5.1)
[2019-07-08 08:02] VITALS: BP 89/55
--- NOTE | 2019-07-08 08:34 | NUR ---
RN NOTES RECEIVED PT IN BED, AWAKE. TOLERATING RA, WITH NO ACUTE RESPIRATORY DISTRESS NOTED. PT STED MILD PAIN AND WANTED TO HAVE TYLENOL. PT CURRENTLY ON NPO PER NIGHT NURSE FOR POSSIBLE UPCOMING SURGERY. PROCEDURE CONSENT OBTAINED EXCEPT BT AND ANESTHESIA. ALSO PER NIGHT NURSE, NO ACTUAL ORDER OF SURGERY WAS PLACED. AWAITING FOR VERIFICATION FROM BENEDICT HERNANDEZ HOSPITALIST. PT REMINDED SHE'S STILL ON NPO AND AWAITING FOR SCHEDULE OF SURGERY. PT AWARE AND UNDERSTOOD SITUATION. PT DENIES ANY OTHER CONCERNS AT THIS TIME. PT WAS JUST SEEN BY PROFESSIONAL NURSING TUTOR/DR HAYES, DC'D TELE. PT KEPT COMFORTABLE. PT'S BED IN LOWEST, LOCKED POSITION X2. CALL LIGHT KEPT WITHIN REACH. WILL CONTINUE PLAN OF CARE.
--- NOTE | 2019-07-08 09:17 | NUR ---
RN NOTES PT ENDORSED TO JUAN/JONAS FOR JEAN PIERRE.
--- NOTE | 2019-07-08 09:17 | NUR ---
RN NOTES PT AWAKE AND RESTING AT SIDE OF BED. PT COMPLAINS OF PAIN, WILL GIVE PRN TYLENOL. PT CURRENTLY NPO. AWAITING PERITONEAL DIALYSIS CATHETER PLACEMENT. PT HAS LEFT UPPER ARM MIDLINE, LEFT IV PERMACATH. SAFETY PRECAUTIONS IN PLACE, BED IN LOWEST LOCKED POSITION, X2 SIDE RAILS UP AND CALL LIGHT WITHIN REACH. WILL CONTINUE TO MONITOR.
[2019-07-08] MEDS: SILDENAFIL CITRATE 20 MG TABLET PO SCH ×3 (09:40→16:04)
[2019-07-08] MEDS: MULTIVIT W/MINERALS 1 TAB TABLET PO SCH (09:40)
[2019-07-08] MEDS: ALLOPURINOL 100 MG TABLET PO SCH (09:40)
[2019-07-08] MEDS: DIGOXIN 0.125 MG TABLET PO SCH (09:41)
[2019-07-08] MEDS: ACETAMINOPHEN 325 MG TABLET PO PRN ×2 (09:41→23:06)
[2019-07-08] MEDS: OPSUMIT 10 MG PO SCH (09:41)
[2019-07-08] MEDS: BUMETANIDE (1 MG) 1 MG TABLET PO SCH ×2 (09:41→16:05)
[2019-07-08 15:50] VITALS: BP 90/52
[2019-07-08] MEDS: ONDANSETRON HCL/PF 4 MG/2 ML VIAL IVP PRN (16:04)
--- NOTE | 2019-07-08 16:17 | NUR ---
RN NOTES PER TELECOMMUNICATIONS SUPPORT NATHAN; PROCEDURE HELD UNTIL TOMORROW. PT WILL BE NPO AFTER MIDNIGHT EXCEPT MEDICATIONS. HOLD ANTICOAGULANTS.
--- NOTE | 2019-07-08 19:00 | NUR ---
RN CLOSING NOTES PT AWAKE AND RESTING IN BED. NO COMPLAINTS OF PAIN, SOB OR DISTRESS AT THIS TIME. PT WILL BE NPO AT MIDNIGHT. AWAITING PERITONEAL DIALYSIS CATHETER PLACEMENT TOMORROW 07/09/19. PT HAS LEFT UPPER ARM MIDLINE, LEFT IV PERMACATH. SAFETY PRECAUTIONS IN PLACE, BED IN LOWEST LOCKED POSITION, X2 SIDE RAILS UP AND CALL LIGHT WITHIN REACH. WILL ENDORSE TO GEOLOGICAL SCIENCE TEACHER NURSE FOR CONTINUITY OF CARE.
--- NOTE | 2019-07-08 19:05 | NUR ---
MS RN OPENING NOTES Received patient in bed, watching TV. Alert, oriented x 3, family at bedside. Breathing even and unlabored. Not in any distress. No complaints at this time. Safety measures in place, call light within reach, bed in low, locked position. Will continue to monitor accordingly
[2019-07-08 20:00] VITALS: BP 88/58
[2019-07-08 21:15] VITALS: BP 92/55
--- NOTE | 2019-07-08 21:15 | NUR ---
RN NOTES BP rechecked- 92/55mmHg, HR- 80bpm
[2019-07-09] VITALS (13 sets, daily range): BP systolic 85–110; BP diastolic 46–66
--- NOTE | 2019-07-09 07:17 | NUR ---
MS RN CLOSING NOTES PATIENT STILL SLEEPING IN BED, EASY TO AROUSE. BREATHING EVEN AND UNLABORED. NOT IN ANY DISTRESS. ASHER MIDLINE INTACT AND PATENT. NO ACUTE CHANGES OVERNIGHT. SAFETY MEASURES IN PLACE. CALL LIGHT WITHIN REACH, BED IN LOW, LOCKED POSITION. ENDORSED JEAN PIERRE TO AM RN
--- NOTE | 2019-07-09 07:24 | NUR ---
MS RN OPENING NOTE RECEIVED PATIENT IN BED SLEEPING COMFORTABLY. PATIENT IN NO ACUTE DISTRESS. NO SOB NOTED. PATIENT BREATHING IS EVEN AND UNLABORED. ASHER MIDLINE INTACT. PATIENT MAINTAINED ON NPO STATUS. SAFETY PRECAUTIONS IN PLACE. PATIENT BED IS LOCKED AND IN LOWEST POSITION. CALL LIGHT WITHIN REACH. WILL CONTINUE TO MONITOR.
[2019-07-09 08:45] LABS: CALCIUM, SERUM 8.5 mg/dL (8.5-10.1); CREATININE 4.8 mg/dL (0.6-1.3); POTASSIUM 4.4 mmol/L (3.5-5.1)
[2019-07-09] MEDS: ASPIRIN 81 MG TAB.CHEW PO SCH (08:50)
[2019-07-09] MEDS: PANTOPRAZOLE 40 MG TABLET.DR PO SCH (08:55)
[2019-07-09] MEDS: BUMETANIDE (1 MG) 1 MG TABLET PO SCH ×2 (09:00→16:25)
--- NOTE | 2019-07-09 09:00 | NUR ---
MS RN NOTE SPOKE WITH JORGE A CESPEDES REGARDING MEDICATION ADMINISTRATION. NOTING BUMEX, DIGOXIN, OPSUMIT, AND SILDENAFIL SCHEDULED. PER JORGE A TO ASK ANESTHESIOLOGIST IF OKAY TO ADMINISTER DUE TO PATIENT RECEIVING PERITONEAL DIALYSIS CATH PLACEMENT TODAY. PER ANESTHESIOLOGIST MANDI, HOLD BUMEX, OKAY TO ADMINISTER DIGOXIN, OPSUMIT, AND SILDENAFIL. JORGE A CESPEDES MADE AWARE.
[2019-07-09] MEDS: MULTIVIT W/MINERALS 1 TAB TABLET PO SCH (09:09)
[2019-07-09] MEDS: OPSUMIT 10 MG PO SCH (09:09)
[2019-07-09] MEDS: SILDENAFIL CITRATE 20 MG TABLET PO SCH ×3 (09:09→16:25)
[2019-07-09] MEDS: ALLOPURINOL 100 MG TABLET PO SCH (09:10)
[2019-07-09] MEDS: DIGOXIN 0.125 MG TABLET PO SCH (09:10)
[2019-07-09] MEDS ORDERED: ANESTHESIA TRAY IN PYXIS 1 EA TRAY MC ONE (11:48)
[2019-07-09] MEDS ORDERED: BUPIVACAINE MPF 0.5% W/EPI INJ 30 ML VIAL ONE (11:48)
[2019-07-09] MEDS ORDERED: LIDOCAINE HCL/MPF 1% 30 ML VIAL IJ ONE (11:48)
--- NOTE | 2019-07-09 12:15 | NUR ---
MS RN NOTE PER ANESTHESIOLOGIST MANDI, OKAY TO GIVE SILDENAFIL NOW.
[2019-07-09] MEDS ORDERED: FENTANYL PF 100MCG/2ML AMPUL ONE (12:44)
[2019-07-09] MEDS ORDERED: ATRACURIUM 100MG/10 ML MDV IV ONE (12:45)
[2019-07-09] MEDS ORDERED: NOREPINEPHRINE 4 MG/4 ML AMPUL IV ONE (12:45)
[2019-07-09] MEDS ORDERED: HEPARIN SODIUM, PORCINE 1,000 UNIT/ML VIAL ONE (14:46)
[2019-07-09] MEDS: HYDROCODONE/APAP 5/325MG 1 EACH TABLET PO PRN ×2 (17:24→23:40)
--- NOTE | 2019-07-09 19:27 | NUR ---
MS RN CLOSING NOTE PATIENT IN BED RESTING COMFORTABLY. PATIENT IN NO ACUTE DISTRESS. NO SOB NOTED. NO FACIAL GRIMACING NOTED. PATIENT BREATHING IS EVEN AND UNLABORED. PATIENT BREATHING ON OXYGEN NC AT 2L. PATIENT PERITONEAL DIALYSIS CATH SITE ON LEFT ABDOMEN IS KEPT CLEAN AND INTACT. PATIENT HOB IS ELEVATED. PATIENT KEPT CLEAN, DRY, AND COMFORTABLE. PATIENT BED IS LOCKED AND IN LOWEST POSITION. CALL LIGHT WITHIN REACH. WILL ENDORSE CARE TO PM SHIFT FOR JEAN PIERRE.
--- NOTE | 2019-07-09 19:30 | NUR ---
MS RN OPENING NOTES RECEIVED PATIENT IN BED WITH HEAD OF BED ELEVATED, ALERT, ORIENTED X 4. FAMILY AT BEDSIDE. BREATHING EVEN AND UNLABORED. NOT IN ANY DISTRESS, ON 2L O2 VIA NASAL CANNULA. ASHER MIDLINE INTACT AND PATENT. PERITONEAL DIALYSIS CATH SITE ON L ABDOMEN, DRESSING CLEAN, DRY AND INTACT. SAFETY MEASURES IN PLACE, CALL LIGHT WITHIN REACH, BED IN LOW, LOCKED POSITION. WILL CONTINUE TO MONITOR ACCORDINGLY
--- NOTE | 2019-07-09 23:40 | NUR ---
RN NOTES PATIENT C/O PAIN ON L SIDE OF THE ABDOMEN, 06/04. NORCO 5-325 GIVEN ORDERED. WILL CONTINUE TO MONITOR
--- NOTE | 2019-07-10 06:35 | NUR ---
MS RN CLOSING NOTE PATIENT IN BED SLEEPING IN BED COMFORTABLY. BREATHING EVEN AND UNLABORED. ON O2 AT 2LPM VIA NASAL CANNULA. NO ACUTE DISTRESS AND NO SOB NOTED. PERITONEAL DIALYSIS CATH DRESSING ON LEFT ABDOMEN IS CLEAN, DRY AND INTACT. PATIENT HOB IS ELEVATED. SAFETY MEASURES IN PLACE; CALL LIGHT WITHIN REACH, BED IS LOCKED AND IN LOWEST POSITION. WILL ENDORSE CONTINUITY OF CARE TO AM SHIFT RN.
[2019-07-10 08:00] VITALS: BP 90/49
--- NOTE | 2019-07-10 08:00 | NUR ---
RN NOTES RECEIVED PATIENT IN THE BED A/O 4 FEMALE, OBESE, NO ACUTE RESPIRATORY DISTRESS. V/S TAKEN BP 89/49, P-64, PATIENT WAS COMPLAINING OF GENERALIZED PAIN 8/10 PER PAIN SCALE. IV ACCESS ON LEFT UA MIDLINE, AND LEFT WRIST IV ACCESS INTACT. LEFT LOWER QUADRANT OF ABDOMEN PATIENT HAS A PERITONEAL CATH, AND LEFT UPPER CHEST HAS PERMCATH FOR HD. PATIENT USING BEDSIDE COMMODE WITH ASSISTANCE. PATIENT WAS COMPLAINING OF GENERALIZED WEAKNESS. ASSIST PATIENT TURN AND REPOSTION Q 2 HR. NEEDS ATTENDED AND ANTICIPATED, CALL LIGHT WITHIN TO REACH, SAFETY PRECAUTION MAINTAINED ALL THE TIME.
[2019-07-10 08:17] VITALS: BP 89/49
[2019-07-10 08:23] LABS: BASOPHILS % (AUTO) 0.2 % (0.0-2.0); HEMATOCRIT 31 % (33-45); LYMPHOCYTES # (AUTO) 0.7 /CMM (0.8-4.8); LYMPHOCYTES % (AUTO) 9.8 % (20.0-44.0); MEAN CORPUSCULAR HGB CONC 32 g/dl (31.0-36.0); MEAN CORPUSCULAR VOLUME 93 fL (82-100); MONOCYTES # (AUTO) 0.4 /CMM (0.1-1.30); MONOCYTES % (AUTO) 6.1 % (2.0-12.0); NEUTROPHILS # (AUTO) 5.7 /CMM (1.8-8.9); NEUTROPHILS % (AUTO) 83.9 % (43.0-81.0); PLATELET COUNT (AUTO) 262 /CMM (150-450); RED BLOOD CELL COUNT(AUTO) 3.39 MIL/uL (4.0-5.2); WHITE BLOOD COUNT (AUTO) 6.8 K/uL (4.3-11.0)
[2019-07-10] MEDS: HYDROCODONE/APAP 5/325MG 1 EACH TABLET PO PRN ×2 (08:50→15:05)
--- NOTE | 2019-07-10 08:50 | NUR ---
RN NOTES ADMINISTERED NARCO 5/325 MG PO PRN FOR GENERALIZED PAIN 06/04 PER PATIENT REQUEST, V/S TAKEN BP 89-47, P-70, R-18, CONTINUED MONITORING, ENCOURAGED TO INCREASE FLUID INTAKE.
[2019-07-10] MEDS: ASPIRIN 81 MG TAB.CHEW PO SCH (08:51)
[2019-07-10] MEDS: PANTOPRAZOLE 40 MG TABLET.DR PO SCH (08:51)
[2019-07-10] MEDS: BUMETANIDE (1 MG) 1 MG TABLET PO SCH ×2 (08:51→17:38)
[2019-07-10] MEDS: MULTIVIT W/MINERALS 1 TAB TABLET PO SCH (08:51)
[2019-07-10] MEDS: SILDENAFIL CITRATE 20 MG TABLET PO SCH ×3 (08:51→17:00)
[2019-07-10] MEDS: ALLOPURINOL 100 MG TABLET PO SCH (08:52)
[2019-07-10] MEDS: OPSUMIT 10 MG PO SCH (08:56)
[2019-07-10 08:57] LABS: CALCIUM, SERUM 8.6 mg/dL (8.5-10.1); CREATININE 5.1 mg/dL (0.6-1.3); POTASSIUM 4.7 mmol/L (3.5-5.1)
[2019-07-10] MEDS: DIGOXIN 0.125 MG TABLET PO SCH (09:00)
[2019-07-10] MEDS: DOCUSATE SODIUM 100 MG CAPSULE PO SCH ×2 (10:01→17:38)
--- NOTE | 2019-07-10 12:49 | NUR ---
RN NOTES BP 90/60, P-59 HOLD DIGOXIN , AND BP MEDICATION SCHEDULED, CONTINUED MONITORING.
[2019-07-10] MEDS: ONDANSETRON HCL/PF 4 MG/2 ML VIAL IVP PRN (12:56)
--- NOTE | 2019-07-10 12:56 | NUR ---
RN NOTES ADMINISTERED ZOFRAN 4 MG/ML FOR NAUSEA.
--- NOTE | 2019-07-10 15:05 | NUR ---
RN NOTES ADMINISTERED NARCO 5/325 MG PO PRN FOR GENERALIZED PAIN /10 PER PATIENT REQUESR, V/S STABLE, BP-94/57, P-67, R-18, CONTINUED MONITORING.
[2019-07-10 16:08] VITALS: BP 92/59
--- NOTE | 2019-07-10 18:33 | NUR ---
RN NOTES PATENT STABLE MEDICATION WERE ADMINISTERED FOR PAIN, AND NAUSEA EFFECTIVE, ADMINISTERED SCHEDULED MEDICATION, V/S TAKEN BP 92/ 59, P-68, HELD BP MEDICATION. PATIENT HAS DVT PUMP ON, TURN AND REPOSTION SELF IN THE BED AT THIS TIME. GET CALL FROM DIALYSIS NURSE PATIENT WILL GET HD LATE TONIGHT. CALL LIGHT WITHIN TO REACH, SAFETY PRECAUTION MAINTAINED ALL THE TIME.
--- NOTE | 2019-07-10 19:15 | NUR ---
MS RN NOTES RECEIVED PATIENT IN THE BED AWAKE AND ABLE TO MAKE NEEDS KNOWN. PT A/O X3. RESPIRATIONS EVEN AND UNLABORED WITH NO S/S OF ACUTE DISTRESS OR SOB NOTED. NO COMPLAINTS OF PAIN AT THIS TIME. PT WITH IV ACCESS ON LEFT UA MIDLINE PATENT AND INTACT. LEFT LOWER QUADRANT OF ABDOMEN PATIENT HAS A PERITONEAL CATH, AND LEFT UPPER CHEST HAS PERMCATH FOR HD. SAFETY MEASURES IN PLACE WITH BED IN LOWEST LOCKED POSITION WITH SIDE RAILS UP X2. CALL LIGHT WITHIN REACH. WILL CONTINUE TO MONITOR.
[2019-07-10 20:00] VITALS: BP 94/60
[2019-07-10 21:14] VITALS: BP 94/60
--- NOTE | 2019-07-11 | NUR ---
MS RN NOTES PT REFUSED PHOTOS AT THIS TIME.
--- NOTE | 2019-07-11 06:58 | NUR ---
MS RN NOTES PT IN THE BED AWAKE AND ABLE TO MAKE NEEDS KNOWN. PT A/O X3. RESPIRATIONS EVEN AND UNLABORED WITH NO S/S OF ACUTE DISTRESS OR SOB NOTED THROUGHOUT SHIFT. NO COMPLAINTS OF PAIN AT THIS TIME. PT WITH IV ACCESS ON LEFT UA MIDLINE PATENT AND INTACT. LEFT LOWER QUADRANT OF ABDOMEN PATIENT HAS A PERITONEAL CATH, AND LEFT UPPER CHEST HAS PERMCATH FOR HD. SAFETY MEASURES IN PLACE WITH BED IN LOWEST LOCKED POSITION WITH SIDE RAILS UP X2. CALL LIGHT WITHIN REACH. WILL ENDORSE TO ONCOMING NURSE FOR JEAN PIERRE.
--- NOTE | 2019-07-11 07:00 | NUR ---
MS RN OPENING RECEIVED PATIENT AWAKE, ALERT, A/OX4. DENIES CHEST PAIN AND PALPATIONS AT THIS TIME. ON ROOM AIR, SATURATING 97%, NO SOB OR ACUTE DISTRESS NOTED. L UA MIDLINE SL, L IJ HD CATH PRESENT + ABDOMINAL PD CATH DRESSING C/D/I, NO S/S BLEEDING. BED LOCKED, LOW, SIDE RAILS UPX2, CALL LIGHT WITHIN REACH. WILL CONT TO MONITOR
[2019-07-11] MEDS: PANTOPRAZOLE 40 MG TABLET.DR PO SCH (07:39)
[2019-07-11] MEDS: HYDROCODONE/APAP 5/325MG 1 EACH TABLET PO PRN ×2 (07:39→21:23)
[2019-07-11 08:00] VITALS: BP 94/62
[2019-07-11 08:18] VITALS: BP 94/62
[2019-07-11] MEDS: OPSUMIT 10 MG PO SCH (08:42)
[2019-07-11] MEDS: BUMETANIDE (1 MG) 1 MG TABLET PO SCH ×2 (08:42→16:09)
[2019-07-11] MEDS: DOCUSATE SODIUM 100 MG CAPSULE PO SCH ×2 (08:42→16:09)
[2019-07-11] MEDS: ALLOPURINOL 100 MG TABLET PO SCH (08:42)
[2019-07-11] MEDS: ASPIRIN 81 MG TAB.CHEW PO SCH (08:42)
[2019-07-11] MEDS: MULTIVIT W/MINERALS 1 TAB TABLET PO SCH (08:42)
[2019-07-11] MEDS: DIGOXIN 0.125 MG TABLET PO SCH (08:49)
[2019-07-11] MEDS: SILDENAFIL CITRATE 20 MG TABLET PO SCH ×4 (08:50→16:09)
[2019-07-11 12:09] LABS: CALCIUM, SERUM 8.4 mg/dL (8.5-10.1); CREATININE 4.6 mg/dL (0.6-1.3); POTASSIUM 3.7 mmol/L (3.5-5.1)
[2019-07-11 12:12] LABS: BASOPHILS % (AUTO) 0.3 % (0.0-2.0); EOSINOPHILS % (AUTO) 1.5 % (0.0-6.0); HEMATOCRIT 31 % (33-45); HEMOGLOBIN 9.9 g/dL (11.5-14.8); MEAN CORPUSCULAR HGB CONC 32 g/dl (31.0-36.0); MEAN CORPUSCULAR VOLUME 93 fL (82-100); MONOCYTES # (AUTO) 0.7 /CMM (0.1-1.30); MONOCYTES % (AUTO) 10.4 % (2.0-12.0); NEUTROPHILS % (AUTO) 72.8 % (43.0-81.0); PLATELET COUNT (AUTO) 239 /CMM (150-450); RED BLOOD CELL COUNT(AUTO) 3.33 MIL/uL (4.0-5.2); WHITE BLOOD COUNT (AUTO) 6.8 K/uL (4.3-11.0)
--- NOTE | 2019-07-11 13:00 | NUR ---
PHOTO JOURNALIST AWARE OF PATIENT'S REPORT OF "SPIDER BITE"
[2019-07-11] MEDS: ONDANSETRON HCL/PF 4 MG/2 ML VIAL IVP PRN ×2 (15:04→21:21)
[2019-07-11 16:08] VITALS: BP 83/59
[2019-07-11] MEDS ORDERED: ALTEPLASE CATHFLO 2 MG/VIAL IV ONE (17:00)
[2019-07-11] MEDS ORDERED: ALTEPLASE 100 MG/VIAL VIAL IV ONE (17:00)
--- NOTE | 2019-07-11 19:30 | NUR ---
MS RN OPENING NOTE RECEIVED PATIENT IN BED. A/O X3. PATIENT ON OXYGEN 2L/MIN VIA NASAL CANNULA. RESPIRATION ARE EVEN AND UNLABORED. NO SIGN OF SOB NOTED. DENIES PAIN AT THIS TIME. IV ACCESS LEFT UPPER ARM MIDLINE PATENT AND SALINE LOCKED, AND LEFT IJ. BED IS LOW AND LOCKED, SIDE RAILS UP X2, HOB ELEVATED 30 DEGREES. CALL LIGHT WITHIN REACH. WILL CONTINUE TO MONITOR.
--- NOTE | 2019-07-11 19:32 | NUR ---
MS RN CLOSING ACTIVASE ORDERED PER DR. SCHROEDER. IN POSSESSION OF REPROGRAPHICS TECHNICIAN. NO SIGNIFICANT CHANGES NOTED THROUGHOUT SHIFT. ENDORSED TO NOC RN
[2019-07-11 20:00] VITALS: BP 91/60
[2019-07-11 20:06] VITALS: BP 91/60
--- NOTE | 2019-07-11 21:26 | NUR ---
MS RN NOTE ADMINISTERED PRN NORCO 5-325 PO FOR PAIN 8/10 IN ABDOMEN AND SACRUM. WILL CONTINUE TO MONITOR. ADMINISTERED PRN ZOFRAN 40MG IVP FOR COMPLAINT OF NAUSEA. WILL CONTINUE TO MONITOR.
--- NOTE | 2019-07-12 07:10 | NUR ---
MS RN CLOSING NOTE PATIENT IS RESTING IN BED. A/O X3. PATIENT ON OXYGEN 2L/MIN VIA NASAL CANNULA. RESPIRATION REMAIN EVEN AND UNLABORED. NO SOB NOTED THROUGHOUT SHIFT. NO COMPLAINTS OF PAIN THROUGHOUT SHIFT. IV ACCESS MAINTAINED LEFT UPPER ARM MIDLINE PATENT AND SALINE LOCKED, AND LEFT IJ. BED IS LOW AND LOCKED, SIDE RAILS UP X2, HOB ELEVATED 30 DEGREES. CALL LIGHT WITHIN REACH. WILL ENDORSE TO NEXT SHIFT FOR JEAN PEIRRE.
[2019-07-12] MEDS: PANTOPRAZOLE 40 MG TABLET.DR PO SCH (07:37)
[2019-07-12 08:00] VITALS: BP 88/54
--- NOTE | 2019-07-12 08:00 | NUR ---
MS/RN - Assessment Patient is awake, A/O x 4, c/o right buttock discomfort d/t spider bite, Md aware, no apparent distress noted, afebrile, currently on oxygen at 2lpm via NC. ASHER midline is patent, intact, with no signs of infiltration. Labs reviewed, no critical results noted. Patient is independent with bed mobility. Fall precautions maintained. Patient educated on plan of care and in agreement. Will continue with current medical management.
[2019-07-12] MEDS: MULTIVIT W/MINERALS 1 TAB TABLET PO SCH (08:20)
[2019-07-12] MEDS: DOCUSATE SODIUM 100 MG CAPSULE PO SCH ×2 (08:20→16:38)
[2019-07-12] MEDS: ALLOPURINOL 100 MG TABLET PO SCH (08:20)
[2019-07-12] MEDS: ASPIRIN 81 MG TAB.CHEW PO SCH (08:20)
[2019-07-12] MEDS: SILDENAFIL CITRATE 20 MG TABLET PO SCH ×3 (08:20→16:39)
[2019-07-12] MEDS: BUMETANIDE (1 MG) 1 MG TABLET PO SCH ×2 (08:20→16:38)
[2019-07-12] MEDS: DIGOXIN 0.125 MG TABLET PO SCH (08:21)
[2019-07-12] MEDS: OPSUMIT 10 MG PO SCH (08:21)
[2019-07-12 08:29] LABS: BASOPHILS # (AUTO) 0.1 /CMM (0.0-0.2); EOSINOPHILS % (AUTO) 2.7 % (0.0-6.0); HEMATOCRIT 32 % (33-45); HEMOGLOBIN 10.1 g/dL (11.5-14.8); LYMPHOCYTES # (AUTO) 0.8 /CMM (0.8-4.8); LYMPHOCYTES % (AUTO) 11.2 % (20.0-44.0); MEAN CORPUSCULAR HGB CONC 32 g/dl (31.0-36.0); MEAN CORPUSCULAR VOLUME 93 fL (82-100); MONOCYTES # (AUTO) 0.8 /CMM (0.1-1.30); MONOCYTES % (AUTO) 10.7 % (2.0-12.0); NEUTROPHILS # (AUTO) 5.5 /CMM (1.8-8.9); NEUTROPHILS % (AUTO) 74.4 % (43.0-81.0); PLATELET COUNT (AUTO) 231 /CMM (150-450); RED BLOOD CELL COUNT(AUTO) 3.38 MIL/uL (4.0-5.2); WHITE BLOOD COUNT (AUTO) 7.5 K/uL (4.3-11.0)
[2019-07-12 08:38] LABS: CALCIUM, SERUM 8.6 mg/dL (8.5-10.1); CREATININE 3.9 mg/dL (0.6-1.3); POTASSIUM 3.9 mmol/L (3.5-5.1)
--- NOTE | 2019-07-12 09:51 | NUR ---
MS/RN - S/b surgical DIRECTOR EMERGENCY DEPARTMENT Seen and examined by CASSIE Haji of Dr. Nabil Mccoy for left buttock induration with order for US left buttock abscess localization.
--- NOTE | 2019-07-12 11:33 | NUR ---
MS/RN - S/b hospitalist Seen and examined by Ayse Cates NP with orders noted and carried out.
--- NOTE | 2019-07-12 12:26 | NUR ---
MS/RN - Neuro Eval Seen and evaluated by Amy Bullard with no new order at this time.
[2019-07-12 16:00] VITALS: BP 86/54
--- NOTE | 2019-07-12 18:16 | NUR ---
MS/RN - End of shift summary No significant change in condition seen, remain afebrile, no c/o pain, not in any form of distress. HD treatment ongoing, per HD RN plan to remove 1 liter if able to tolerate. US left buttock done, results pending. All needs attended. Will continue with current plan of care.
--- NOTE | 2019-07-12 19:05 | NUR ---
MS RN OPENING NOTES Received patient in bed, HD treatment ongoing. Alert, oriented x 4. Breathing even and unlabored. Not in any distress. On 2L O2 via nasal cannula. Safety measures in place; call light within reach. Bed in low, locked position. Will continue to monitor accordingly
--- NOTE | 2019-07-12 19:50 | NUR ---
RN NOTES Hemodialysis done. As per HD RN, 856mL out.
[2019-07-12 20:00] VITALS: BP 86/57
[2019-07-12] MEDS: HYDROCODONE/APAP 5/325MG 1 EACH TABLET PO PRN (20:27)
[2019-07-12 22:00] VITALS: BP 88/56
--- NOTE | 2019-07-13 01:53 | NUR ---
RN notes PATIENT SLEEPING IN BED, EASY TO AROUSE. BREATHING EVEN AND UNLABORED. NOT IN ANY DISTRESS. KEPT COMFORTABLE. REPORT GIVEN TO JUAN BROWN FOR JEAN PIERRE
--- NOTE | 2019-07-13 01:56 | NUR ---
RN NOTES RECEIVED ENDORSEMENT FROM JUAN DAVE FOR Pt's JEAN PIERRE. WILL CONTINUE TO MONITOR Pt's CONDITION AND SAFETY FOR THE REMAINDER OF THE SHIFT.
[2019-07-13] MEDS: ACETAMINOPHEN 325 MG TABLET PO PRN (02:45)
--- NOTE | 2019-07-13 02:49 | NUR ---
RN NOTES Pt WAS C/O OF 10/10 PAIN IN BUTTOCK AREA. TOOK OUT PRN NORCO-5 PER MD ORDER FOR PAIN MANAGEMENT. CHECKED BP 1ST READING WAS 90/56, CHECKED AGAIN BP DROPPED TO 88/57. WAITED 20 MIN BP READ AGAIN LOW 88/56. PER ENDORSEMENT RN SAID Pt's BASELINE BP RUNS LOW IN THE LOW 90s. TOLD Pt THAT DUE TO HER LOW BP, I COULD NOT GIVE HER THE NORCO. Pt SAID IT WAS FINE AND THAT SHE WILL TAKE THE TYLENOL INSTEAD IN THE MEAN TIME. WILL CONTINUE TO MONITOR Pt's BP.
--- NOTE | 2019-07-13 06:32 | NUR ---
RN CLOSING NOTES NO SIGNIFICANT CHANGES IN Pt's CONDITION. Pt REMAINS STABLE AT THIS TIME. NO S/S OF ACUTE DISTRESS OR SOB NOTED DURING THE NIGHT. Pt IS RESTING COMFORTABLY IN BED, WITH EVEN AND UNLABORED RESPIRATIONS. ALL NEEDS MET AND ATTENDED TO. SAFETY MEASURES IN PLACE. WILL ENDORSE TO DAYSHIFT RN FOR Pt's JEAN PIERRE.
[2019-07-13 07:15] LABS: BASOPHILS # (AUTO) 0.1 /CMM (0.0-0.2); BASOPHILS % (AUTO) 0.8 % (0.0-2.0); EOSINOPHILS % (AUTO) 2.3 % (0.0-6.0); HEMATOCRIT 30 % (33-45); HEMOGLOBIN 9.7 g/dL (11.5-14.8); LYMPHOCYTES % (AUTO) 12.8 % (20.0-44.0); MEAN CORPUSCULAR HGB CONC 32 g/dl (31.0-36.0); MEAN CORPUSCULAR VOLUME 93 fL (82-100); MONOCYTES # (AUTO) 1.1 /CMM (0.1-1.30); MONOCYTES % (AUTO) 13.4 % (2.0-12.0); NEUTROPHILS # (AUTO) 5.6 /CMM (1.8-8.9); NEUTROPHILS % (AUTO) 70.7 % (43.0-81.0); PLATELET COUNT (AUTO) 201 /CMM (150-450); RED BLOOD CELL COUNT(AUTO) 3.22 MIL/uL (4.0-5.2); WHITE BLOOD COUNT (AUTO) 7.9 K/uL (4.3-11.0)
--- NOTE | 2019-07-13 07:30 | NUR ---
RN MS NOTES PT IN BED, AWAKE, ALERT AND ORIENTED, NO COMPLAINT OF PAIN OR ANY DISCOMFORT, RESPIRATIONS NORMAL, CALL LIGHT WITHIN REACH, NEEDS ATTENDED, KEPT COMFORTABLE.
[2019-07-13 07:42] LABS: CALCIUM, SERUM 8.2 mg/dL (8.5-10.1); MAGNESIUM 2.1 mg/dL (1.8-2.4); PHOSPHORUS 2.6 mg/dL (2.5-4.9); POTASSIUM 4.2 mmol/L (3.5-5.1)
[2019-07-13 08:17] VITALS: BP 84/61
[2019-07-13] MEDS: DIGOXIN 0.125 MG TABLET PO SCH (08:39)
[2019-07-13] MEDS: ALLOPURINOL 100 MG TABLET PO SCH (08:39)
[2019-07-13] MEDS: MULTIVIT W/MINERALS 1 TAB TABLET PO SCH (08:39)
[2019-07-13] MEDS: PANTOPRAZOLE 40 MG TABLET.DR PO SCH (08:40)
[2019-07-13] MEDS: ASPIRIN 81 MG TAB.CHEW PO SCH (08:40)
[2019-07-13] MEDS: OPSUMIT 10 MG PO SCH (08:40)
--- NOTE | 2019-07-13 08:48 | NUR ---
WOUND CARE CONSULT: PT PRESENTS CONTINENT AND INDEPENDENT WITH BED MOBILITY. NECK SCARRING/DISCOLORATION AND INDURATED AREA NOTED TO LEFT BUTTOCK. DEFER TO SURGICAL TEAM CURRENTLY ON CASE. WILL SEE PRN. CURRENT TOÑITO SCORE IS 19. Addendum: 07/13/19 at 0851 by DANITZA MENSAH WNDNU Amended: Links added.
[2019-07-13] MEDS: BUMETANIDE (1 MG) 1 MG TABLET PO SCH ×2 (09:00→17:00)
[2019-07-13] MEDS: SILDENAFIL CITRATE 20 MG TABLET PO SCH ×3 (09:00→17:00)
[2019-07-13] MEDS: DOCUSATE SODIUM 100 MG CAPSULE PO SCH ×2 (09:00→17:00)
[2019-07-13 12:39] VITALS: BP 100/50
--- NOTE | 2019-07-13 13:06 | NUR ---
RN MS NOTES PT IN BED, AWAKE, ALERT AND ORIENTED, COMPLETED DIALYSIS, TOLERATED WELL, CALL LIGHT WITHIN REACH, NEEDS ATTENDED.
[2019-07-13 16:00] VITALS: BP 90/65
--- NOTE | 2019-07-13 18:20 | NUR ---
RN MS NOTES PT IN BED, ASLEEP, EASY TO AROUSE, ALERT AND ORIENTED, NO COMPLAINT OF PAIN, SEEN BY ELBA MATTHEWS FOR SURGERY, PLAN FOR PERMACATH INSERTION TOMORROW, PT AWARE, STATED THAT SHE WILL SIGN THE CONSENTS LATER SHE IS STILL RECOVERING FROM DIALYSIS, ALSO OFFERED HOT PACKS FOR HER BUTTOCKS, STATED THAT SHE WILL HAVE IT LATER, CALL LIGHT WITHIN REACH, KEPT WARM AND COMFORTABLE IN BED.
[2019-07-13 20:00] VITALS: BP 91/49
--- NOTE | 2019-07-13 20:00 | NUR ---
MS RN NOTES RECEIVED ON BED SLEEPING,AROUSABLE TO VERBAL STIMULI,BREATHING REGULAR,NOT IN ANY FORM OF DISTRESS.WITH ASHER MIDLINE FOR MEDS,LEFT INTRA JUGULAR FOR HD ACCESS TREATMENT, WITH LEFT PERITONEAL DIALYSIS CATH WELL.WITH LEFT BUTTOCK INDURATION/SPIDER BITE.WILL CONTINUE TO MONITOR.INSTRUCTED NPO POST MIDNIGHT FOR PERMA CATH PLACEMENT IN AM BY DR MENON UNDER GENERAL ANESTHESIA PER PATIENT REQUEST.PATIENT UNDERSTAND.CALL LIGHT IN REACH,NEEDS ANTICIPATED.
[2019-07-13] MEDS: HYDROCODONE/APAP 5/325MG 1 EACH TABLET PO PRN (20:02)
--- NOTE | 2019-07-13 20:02 | NUR ---
MS RN NOTES PAIN MANAGEMENT C/O BUTTOCKS PAIN 7/10 ON PAIN SCALE,MEDICATED WITH NORCO 5/325MG,1 TAB PO ORDERED FOR MODERATE PAIN.
[2019-07-13 20:12] VITALS: BP 91/49
--- NOTE | 2019-07-14 03:00 | NUR ---
MS RN NOTES SLEEPING,KEPT WARM AND COMFORTABLE.
[2019-07-14] MEDS: HYDROCODONE/APAP 5/325MG 1 EACH TABLET PO PRN ×2 (06:04→16:35)
--- NOTE | 2019-07-14 06:04 | NUR ---
MS RN NOTES AWAKE THIS TIME,C/O SACRAL PAIN 7/10 ON PAIN SCALE.MEDICATED WITH NORCO 5/325MG,1 TAB PO ORDERED WITH SIPS OF WATER.NPO EXCEPT MEDS.
--- NOTE | 2019-07-14 06:28 | NUR ---
MS RN NOTES OFFERED TO SIGN CONSENT,CASE IS 10AM.PATIENT SAYS TO SIGN IT LATER.NO SIGNIFICANT CHANGE IN STATUS.SLEPT WELL.IN NO ACUTE DISTRESS.WILL ENDORSE TO DAY NURSE FOR JEAN PIERRE.
[2019-07-14 07:14] LABS: BASOPHILS % (AUTO) 0.3 % (0.0-2.0); EOSINOPHILS % (AUTO) 1.1 % (0.0-6.0); HEMATOCRIT 30 % (33-45); HEMOGLOBIN 9.7 g/dL (11.5-14.8); LYMPHOCYTES # (AUTO) 1.3 /CMM (0.8-4.8); LYMPHOCYTES % (AUTO) 11.1 % (20.0-44.0); MEAN CORPUSCULAR HGB CONC 32 g/dl (31.0-36.0); MEAN CORPUSCULAR VOLUME 93 fL (82-100); MONOCYTES # (AUTO) 1.4 /CMM (0.1-1.30); MONOCYTES % (AUTO) 11.8 % (2.0-12.0); NEUTROPHILS # (AUTO) 9.1 /CMM (1.8-8.9); NEUTROPHILS % (AUTO) 75.7 % (43.0-81.0); PLATELET COUNT (AUTO) 197 /CMM (150-450); RED BLOOD CELL COUNT(AUTO) 3.28 MIL/uL (4.0-5.2)
[2019-07-14] MEDS: PANTOPRAZOLE 40 MG TABLET.DR PO SCH (07:30)
--- NOTE | 2019-07-14 07:30 | NUR ---
RN MS NOTES PT IN BED, AWAKE, ALERT AND ORIENTED, DENIES PAIN, NOT IN DISTRESS, CALL LIGHT WITHIN REACH, PLAN FOR PERMACATH PLACEMENT, PT INFORMED, NEEDS ATTENDED.
[2019-07-14 07:45] LABS: CALCIUM, SERUM 8.4 mg/dL (8.5-10.1); CREATININE 2.9 mg/dL (0.6-1.3); MAGNESIUM 1.9 mg/dL (1.8-2.4); PHOSPHORUS 2.5 mg/dL (2.5-4.9); POTASSIUM 4.1 mmol/L (3.5-5.1)
[2019-07-14 08:00] VITALS: BP 92/62
[2019-07-14] MEDS: MULTIVIT W/MINERALS 1 TAB TABLET PO SCH (09:00)
[2019-07-14] MEDS: OPSUMIT 10 MG PO SCH (09:00)
[2019-07-14] MEDS: DIGOXIN 0.125 MG TABLET PO SCH (09:00)
[2019-07-14] MEDS: ASPIRIN 81 MG TAB.CHEW PO SCH (09:00)
[2019-07-14] MEDS: ALLOPURINOL 100 MG TABLET PO SCH (09:00)
[2019-07-14] MEDS: SILDENAFIL CITRATE 20 MG TABLET PO SCH ×3 (09:00→17:00)
[2019-07-14] MEDS: BUMETANIDE (1 MG) 1 MG TABLET PO SCH ×2 (09:00→17:00)
[2019-07-14] MEDS: DOCUSATE SODIUM 100 MG CAPSULE PO SCH ×2 (09:00→17:00)
[2019-07-14] MEDS ORDERED: MIDAZOLAM HCL 2 MG/2ML VIAL ONE (10:03)
[2019-07-14] MEDS ORDERED: FENTANYL PF 100MCG/2ML AMPUL ONE (10:03)
[2019-07-14] MEDS ORDERED: FAMOTIDINE/PF INJ 20 MG/2 ML VIAL IV ONE (10:03)
[2019-07-14] MEDS ORDERED: LIDOCAINE HCL/MPF 1% 30 ML VIAL IJ ONE (10:15)
[2019-07-14] MEDS ORDERED: HEPARIN SODIUM, PORCINE 1,000 UNIT/ML VIAL ONE (10:16)
[2019-07-14] MEDS ORDERED: FEE PK DOSING 1 MIN EA MC ONE (11:57)
[2019-07-14] MEDS ORDERED: CEFTRIAXONE 1 G in IV NS 0.9% 100 ML IV SCH (12:00)
[2019-07-14 12:30] VITALS: BP 101/64
[2019-07-14 12:45] VITALS: BP 101/64
[2019-07-14] MEDS ORDERED: VANCOMYCIN 1 GM in IV D5W 250 ML IV ONE (13:00)
--- NOTE | 2019-07-14 13:00 | NUR ---
RN MS NOTES PT IN BED, AWAKE, ALERT AND ORIENTED, NOT IN DISTRESS, NO COMPLAINT AT THIS TIME, S/P PERMACATH DECLOGGING AND I&D OF BUTTOCK ABCESS AT THE O.R. BY DR. MENON, TOLERATED WELL, KEPT COMFORTABLE AND HEAD OF SALES PROMOTION BED.
[2019-07-14] MEDS: CEFTRIAXONE 1 G in IV D5W 50 ML IV SCH (13:58)
--- NOTE | 2019-07-14 15:45 | NUR ---
RN MS NOTES DR. OHLDEN INFORMED OF PT'S DOPPLER RESULT OF BILATERAL INTERNAL JUGULAR VEIN THROMBOSIS, NO NEW ORDER GIVEN, PT INFORMED.
[2019-07-14 16:00] VITALS: BP 85/52
--- NOTE | 2019-07-14 18:30 | NUR ---
RN MS NOTES PT IN BED, AWAKE, ALERT AND ORIENTED, NOT IN DISTRESS, PAIN MEDS GIVEN ORDERED, TOLERATES CURRENT DIET, ASSISTED IN REPOSITIONING, ALL NEEDS ATTENDED.
[2019-07-14 20:00] VITALS: BP_SYST 82; BP_SYST 92; BP_DIAS 53
--- NOTE | 2019-07-14 20:00 | NUR ---
MS RN RECEIVE PT IN BED A/O X 3 STABLE, RESPIRATION EVEN AND UNLABORED, NO S/S OF DISTRESS. SAFETY MEASURES IN PLACE. WILL CONT TO MTR.
[2019-07-15 05:00] VITALS: BP 102/61
[2019-07-15] MEDS: HYDROCODONE/APAP 5/325MG 1 EACH TABLET PO PRN ×2 (05:13→14:43)
[2019-07-15 06:15] LABS: APPEARANCE,URINE CLOUDY (CLEAR); BILIRUBIN,URINE NEGATIVE (NEGATIVE); BLOOD, URINE 1+ Ery/uL (NEGATIVE); COLOR,URINE DARK YELLO (YELLOW); KETONES,URINE TRACE (NEGATIVE); LEUKOCYTE ESTERASE ,URINE 3+ (NEGATIVE); NITRITE, URINE NEGATIVE (NEGATIVE); PH,URINE 5.5 (5.0-8.0); PROTEIN,URINE 1+ mg/dl (NEGATIVE); UGLUCOSE NEGATIVE (NEGATIVE); UROBILINOGEN,URINE 0.2 EU/dL (0.2)
--- NOTE | 2019-07-15 06:25 | NUR ---
MS RN ASLEEP AND EASILY AWAKEN. NO S/S OF DISTRESS, PAIN MEDICATED WITH PRN PAIN MEDS WITH RELIEF. RESPIRATIONS EVEN AND UNLABORED. NURSING CARE RENDERED, KEPT CLEAN AND DRY AND COMFORTABLE. NEEDS ATTENDED AND ANTICIPATED. NO C/O OF PAIN. SAFETY MEASURES AT ALL TIMES. ENDORSE TO THE NEXT SHIFT.
[2019-07-15 06:33] LABS: BACTERIA,URINE Many /HPF (None Seen); SQUAMOUS EPITHELIAL CELL,UR Many /HPF (None Seen)
[2019-07-15 06:34] LABS: WBC,URINE 21-50 /HPF (0-3)
[2019-07-15 06:52] LABS: BASOPHILS # (AUTO) 0.1 /CMM (0.0-0.2); BASOPHILS % (AUTO) 0.4 % (0.0-2.0); EOSINOPHILS % (AUTO) 2.1 % (0.0-6.0); HEMATOCRIT 29 % (33-45); HEMOGLOBIN 9.2 g/dL (11.5-14.8); LYMPHOCYTES # (AUTO) 1.2 /CMM (0.8-4.8); LYMPHOCYTES % (AUTO) 10.1 % (20.0-44.0); MEAN CORPUSCULAR HGB CONC 32 g/dl (31.0-36.0); MEAN CORPUSCULAR VOLUME 92 fL (82-100); MONOCYTES # (AUTO) 1.4 /CMM (0.1-1.30); MONOCYTES % (AUTO) 11.4 % (2.0-12.0); PLATELET COUNT (AUTO) 197 /CMM (150-450); RED BLOOD CELL COUNT(AUTO) 3.15 MIL/uL (4.0-5.2); WHITE BLOOD COUNT (AUTO) 11.9 K/uL (4.3-11.0)
[2019-07-15 07:01] LABS: CALCIUM, SERUM 8.1 mg/dL (8.5-10.1); MAGNESIUM 1.9 mg/dL (1.8-2.4); PHOSPHORUS 3.4 mg/dL (2.5-4.9); POTASSIUM 4.2 mmol/L (3.5-5.1)
[2019-07-15] MEDS: PANTOPRAZOLE 40 MG TABLET.DR PO SCH (07:30)
--- NOTE | 2019-07-15 07:41 | NUR ---
MS RN OPENING NOTES RECEIVED PATIENT IN BED ASLEEP, AROUSABLE. HOB ELEVATED. NO SOB OBSERVED. DENIES ANY C/O PAIN NOR DISCOMFORT. ASHER MIDLINE INTACT. LEFT UPPER CHEST DIALYSIS CATHETER INTACT WITH DRESSING IN PLACE. WITHOUT S/S OF COMPLICATIONS OBSERVED. BED IN LOWEST POSITION, LOCKED. BED SIDERAILS UP X2. CALL LIGHT WITHIN REACH.
[2019-07-15 08:39] VITALS: BP 132/91
[2019-07-15] MEDS: BUMETANIDE (1 MG) 1 MG TABLET PO SCH ×2 (09:00→17:00)
[2019-07-15] MEDS: ASPIRIN 81 MG TAB.CHEW PO SCH (09:00)
[2019-07-15] MEDS: MULTIVIT W/MINERALS 1 TAB TABLET PO SCH (09:00)
[2019-07-15] MEDS: SILDENAFIL CITRATE 20 MG TABLET PO SCH ×4 (09:00→17:59)
[2019-07-15] MEDS: OPSUMIT 10 MG PO SCH (09:00)
[2019-07-15] MEDS: ALLOPURINOL 100 MG TABLET PO SCH (09:00)
[2019-07-15] MEDS: DOCUSATE SODIUM 100 MG CAPSULE PO SCH ×2 (09:00→17:51)
--- NOTE | 2019-07-15 09:16 | NUR ---
MS RN NOTES HELD AM MEDS, PATIENT WILL RECEIVE HD TX TODAY.
--- NOTE | 2019-07-15 10:30 | NUR ---
MS RN NOTES PATIENT CURRENTLY RECEIVING HD TX.
[2019-07-15] MEDS: ALBUMIN 25% 25 GM in PREMIX 1 EA IV PRN (11:03)
--- NOTE | 2019-07-15 14:00 | NUR ---
MS RN NOTES PATIENT COMPLETED HD TX. 1 LITER OUTPUT. V/S 120/57, T: 97.9; R:18; HR: 85 O2 Sat 94% ROOM AIR
[2019-07-15] MEDS: CEFTRIAXONE 1 G in IV D5W 50 ML IV SCH (14:08)
[2019-07-15 15:34] VITALS: BP 132/60
[2019-07-15] MEDS ORDERED: VANCOMYCIN 1 GM in IV D5W 250 ML IV ONE (17:00)
--- NOTE | 2019-07-15 17:52 | NUR ---
MS JUAN GOYAL AND SILDENAFIL, LOW BP 90/60 Addendum: 07/15/19 at 1801 by KOBI CABAN RN MS MARTINEZ NOTES SALLY ROSEN. PER PATIENT SHE HAD ALWAYS TAKEN SILDENAFIL WITHOUT TAKING HER BP AND IT HAS HELPED HER ESPECIALLY WITH HER BREATHING. SILDENAFIL ADMINISTERED. WILL RECHECK BP
--- NOTE | 2019-07-15 18:36 | NUR ---
MS RN CLOSING NOTES PATIENT ALERT AND AWAKE ORIENTED X4. DENIES ANY C/O PAIN NOR DISCOMFORT AT THIS TIME. NO S/S OF RESPIRATORY DISTRESS. HAY HD TX WELL WITH 1 LITER OUTPUT. ASHER MIDLINE INTACT AND PATENT. RIGHT MID CHESTWALL HD CATHETER SITE WITH DRESSING INTACT. PD SITE LLQ WITH DRESSING INTACT. BED IN LOWEST POSITION, LOCKED. CALL LIGHT WITHIN REACH. IN NO APPARENT DISTRESS.
--- NOTE | 2019-07-15 19:00 | NUR ---
MS RN NOTES B/P RECHECKED
--- NOTE | 2019-07-15 19:38 | NUR ---
MS RN OPENING NOTES RECEIVED PATIENT ALERT AND AWAKE ORIENTED X4. DENIES ANY PAIN OR DISCOMFORT AT THIS TIME. NO S/S OF RESPIRATORY DISTRESS NOTED. ASHER MIDLINE INTACT AND PATENT. RIGHT MID CHEST WALL HD CATHETER SITE WITH DRESSING INTACT. PD SITE LLQ WITH DRESSING INTACT. SAFETY MEASURES MAINTAINED BED IN LOWEST POSITION, LOCKED. CALL LIGHT WITHIN REACH. IN NO APPARENT DISTRESS AT THIS TIME, ASPIRATION PRECAUTION EMPHASIZED, REPOSITIONED ACCORDINGLY, WILL CONTINUE TO MONITOR.
[2019-07-15 20:00] VITALS: BP 102/67
[2019-07-16] MEDS: HYDROCODONE/APAP 5/325MG 1 EACH TABLET PO PRN ×2 (04:11→17:22)
--- NOTE | 2019-07-16 06:50 | NUR ---
MS RN CLOSING NOTES PATIENT ABLE TO REST AND SLEPT AT INTERVALS, ALERT AND AWAKE ORIENTED X4. DENIES ANY C/O PAIN OR DISCOMFORT AT THIS TIME. NO S/S OF RESPIRATORY DISTRESS NOTED. ASHER MIDLINE INTACT AND PATENT. RIGHT MID CHEST WALL HD CATHETER SITE WITH DRESSING INTACT. PD SITE LLQ WITH DRESSING INTACT. SAFETY MEASURES MAINTAINED BED IN LOWEST POSITION, LOCKED. CALL LIGHT WITHIN REACH. IN NO APPARENT DISTRESS AT THIS TIME, ASPIRATION PRECAUTION EMPHASIZED, REPOSITIONED ACCORDINGLY, WILL ENDORSED TO AM NURSE FOR CONTINUITY OF CARE..
--- NOTE | 2019-07-16 07:32 | NUR ---
MS RN OPENING NOTES RECEIVED PATIENT AWAKE IN BED IN NO ACUTE SIGNS OF DISTRESS. HOB ELEVATED. A/O X4. ABLE TO MAKE NEEDS KNOWN, DENIES ANY PAIN OR DISCOMFORTS AT THIS TIME. ON 02 VIA N/C @ 2LPM, BREATHING EVEN AND UNLABORED. ASHER MIDLINE INTACT AND PATENT. RIGHT MID CHEST WALL HD CATHETER SITE WITH DRESSING INTACT. PD SITE LLQ WITH DRESSING INTACT. SAFETY MEASURES IN PLACE. BED IN LOWEST LOCKED POSITION WITH SR UPX2. CALL LIGHT WITHIN REACH OF PT. WILL CONTINUE TO MONITOR PT ACCORDINGLY.
[2019-07-16 08:00] VITALS: BP 90/54
[2019-07-16 08:17] LABS: BASOPHILS % (AUTO) 0.3 % (0.0-2.0); EOSINOPHILS % (AUTO) 4.3 % (0.0-6.0); HEMATOCRIT 27 % (33-45); HEMOGLOBIN 8.7 g/dL (11.5-14.8); LYMPHOCYTES # (AUTO) 0.9 /CMM (0.8-4.8); LYMPHOCYTES % (AUTO) 11.6 % (20.0-44.0); MEAN CORPUSCULAR HGB CONC 33 g/dl (31.0-36.0); MEAN CORPUSCULAR VOLUME 91 fL (82-100); MONOCYTES # (AUTO) 0.9 /CMM (0.1-1.30); MONOCYTES % (AUTO) 11.5 % (2.0-12.0); NEUTROPHILS # (AUTO) 5.6 /CMM (1.8-8.9); NEUTROPHILS % (AUTO) 72.3 % (43.0-81.0); PLATELET COUNT (AUTO) 193 /CMM (150-450); WHITE BLOOD COUNT (AUTO) 7.8 K/uL (4.3-11.0)
[2019-07-16] MEDS: PANTOPRAZOLE 40 MG TABLET.DR PO SCH (08:19)
[2019-07-16 08:47] LABS: CALCIUM, SERUM 8.1 mg/dL (8.5-10.1); CREATININE 2.4 mg/dL (0.6-1.3); MAGNESIUM 1.9 mg/dL (1.8-2.4); PHOSPHORUS 2.7 mg/dL (2.5-4.9)
[2019-07-16] MEDS: OPSUMIT 10 MG PO SCH (09:07)
[2019-07-16] MEDS: SILDENAFIL CITRATE 20 MG TABLET PO SCH ×3 (09:08→17:22)
[2019-07-16] MEDS: ASPIRIN 81 MG TAB.CHEW PO SCH (09:08)
[2019-07-16] MEDS: MULTIVIT W/MINERALS 1 TAB TABLET PO SCH (09:08)
[2019-07-16] MEDS: DOCUSATE SODIUM 100 MG CAPSULE PO SCH ×2 (09:08→17:22)
[2019-07-16] MEDS: BUMETANIDE (1 MG) 1 MG TABLET PO SCH ×2 (09:08→17:22)
[2019-07-16] MEDS: ALLOPURINOL 100 MG TABLET PO SCH (09:08)
[2019-07-16] MEDS: CEFTRIAXONE 1 G in IV D5W 50 ML IV SCH (12:15)
[2019-07-16 16:00] VITALS: BP 105/54
--- NOTE | 2019-07-16 16:58 | NUR ---
RN NOTES PT SEEN BY CASSIE MANNING WITH ORDER TO APPLY LIDOCAINE 5% TOPICAL OINTMENT TO SACRAL WOUND/ABSCESS QID PRN. ORDER MADE AND WILL CARRY OUT.
[2019-07-16] MEDS ORDERED: LIDOCAINE 5% OINT 35.44 GM TUBE TP PRN (17:00)
--- NOTE | 2019-07-16 17:24 | NUR ---
RN NOTES/PAIN MANAGEMENT PT C/O PAIN ON LEFT BUTTOCK WITH SCALE OF 7/10. PRN NORCO 5/325MG PO GIVEN AT 1722. WILL CONTINUE TO MONITOR AND REASSESS PT.
--- NOTE | 2019-07-16 18:46 | NUR ---
MS RN CLOSING NOTES PATIENT ASLEEP IN BED AT THIS TIME, EASILY AWAKENS. HOB ELEVATED. A/O X4. ABLE TO MAKE NEEDS KNOWN. REFUSED DRESSING CHANGE TO SACRAL WOUND DURING SHIFT STATING THAT IT'S PAINFUL AND WILL ASK IF SHE SHE'S READ TO HAVE IT CHANGE. ON 02 VIA N/C @ 2LPM, BREATHING EVEN AND UNLABORED. ASHER MIDLINE INTACT AND PATENT. RIGHT IJ HD CATHETER SITE C/D/I. PERITONEAL DIALYSIS SITE ON LEFT ABDOMEN WITH DRESSING C/D/I. SAFETY MEASURES KEPT IN PLACE. BED IN LOWEST LOCKED POSITION WITH SR UPX2. CALL LIGHT WITHIN REACH OF PT. WILL CONTINUE TO MONITOR PT ACCORDINGLY.
--- NOTE | 2019-07-16 19:45 | NUR ---
MS RN OPENING NOTES RECEIVED PATIENT FROM MORNING SHIFT, ALERT AND ORIENTED X 4 VERBALLY RESPONSIVE AND ABLE TO FOLLOW DIRECTIONS. BREATHING REGULAR AND UNLABORED ON OXYGEN AT 2L/min VIA NASAL CANNULA. LEFT UPPER ARM MIDLINE INTACT AND PATENT FLUSHING WELL WITH NO BLEEDING OR S/S OF INFECTION/INFILTRATION NOTED. LEFT CHEST PERMACATH INTACT WITH NO BLEEDING NOTED, DRESSING CLEAN AND DRY. LEFT LOWER ABDOMEN PERITONEAL DIALYSIS CATH INTACT WITH CLEAN DRY DRESSING. CALL LIGHT IN REACH, BED LOW AND LOCKED. WILL CONTINUE TO MONITOR.
[2019-07-16 20:00] VITALS: BP 103/52
[2019-07-16] MEDS: ACETAMINOPHEN 325 MG TABLET PO PRN (20:17)
--- NOTE | 2019-07-16 20:30 | NUR ---
MS RN NOTES NOTED WITH BODY TEMPERATURE OF 100.2F, TYLENOL 650MG GIVEN BY MOUTH; COOLING MEASURES PROVIDED. WILL CONTINUE TO MONITOR.
--- NOTE | 2019-07-16 21:00 | NUR ---
MS RN NOTES REFUSED WOUND DRESSING CHANGE FOR NOW, RISK AND BENEFITS EXPLAINED. VERBALIZED TO DO IT A LITTLE BIT LATER. WILL OFFER AGAIN LATER, WILL CONTINUE TO MONITOR.
--- NOTE | 2019-07-16 21:31 | NUR ---
MS RN NOTES LATEST BODY TEMPERATURE 98.6F. WILL CONTINUE TO MONITOR.
--- NOTE | 2019-07-17 06:44 | NUR ---
MS RN CLOSING NOTES PATIENT IN BED ALERT AND ORIENTED X 4 VERBALLY RESPONSIVE AND ABLE TO FOLLOW DIRECTIONS. AFEBRILE WITH NO DISTRESS OBSERVED. BREATHING REGULAR AND UNLABORED ON OXYGEN AT 2L/min VIA NASAL CANNULA. LEFT UPPER ARM MIDLINE INTACT AND PATENT FLUSHING WELL WITH NO BLEEDING OR S/S OF INFECTION/INFILTRATION NOTED. LEFT CHEST PERMACATH INTACT WITH NO BLEEDING NOTED, DRESSING CLEAN AND DRY. LEFT LOWER ABDOMEN PERITONEAL DIALYSIS CATH INTACT WITH CLEAN DRY DRESSING. ASSESSED LEFT BUTTOCK ABSCESS, PHOTO TAKEN ATTACHED TO THE CHART. WOUND TREATMENT PROVIDED. CALL LIGHT IN REACH, BED LOW AND LOCKED. WILL ENDORSE TO MORNING SHIFT FOR AM LABS AND JEAN PIERRE.
[2019-07-17 07:20] LABS: BASOPHILS % (AUTO) 0.6 % (0.0-2.0); EOSINOPHILS % (AUTO) 4.1 % (0.0-6.0); HEMATOCRIT 28 % (33-45); LYMPHOCYTES % (AUTO) 15.6 % (20.0-44.0); MEAN CORPUSCULAR HGB CONC 32 g/dl (31.0-36.0); MEAN CORPUSCULAR VOLUME 92 fL (82-100); MONOCYTES # (AUTO) 0.9 /CMM (0.1-1.30); NEUTROPHILS # (AUTO) 4.3 /CMM (1.8-8.9); NEUTROPHILS % (AUTO) 65.7 % (43.0-81.0); PLATELET COUNT (AUTO) 213 /CMM (150-450); RED BLOOD CELL COUNT(AUTO) 3.05 MIL/uL (4.0-5.2); WHITE BLOOD COUNT (AUTO) 6.5 K/uL (4.3-11.0)
[2019-07-17 07:48] LABS: CALCIUM, SERUM 8.1 mg/dL (8.5-10.1); MAGNESIUM 1.8 mg/dL (1.8-2.4); PHOSPHORUS 2.7 mg/dL (2.5-4.9)
--- NOTE | 2019-07-17 07:48 | NUR ---
M/S RN OPENING NOTES RECEIVED PT ON BED, A/O X 4, AWAKE AND ALERT. RESPIRATION EVEN AND NON LABORED WITH NO ACUTE RESPIRATORY DISTRESS, ON O2 AT 2LPM VIA NASAL CANNULA AND TOLERATED WELL. ABDOMEN SOFT AND NON DISTENDED WITH ACTIVE BOWEL SOUNDS SKIN WARM TO TOUCH AND DRY. PAIN SCALE OF 8/10 AT BUTTOCKS POST INCISION AND DRAINAGE SITE WITH TOPICAL PAIN MEDS GIVEN BY RESOURCE SPECIALIST. ASHER MIDLINE NOTED NO S/SX OF INFILTRATION. LEFT CHEST HD AND LEFT PERITONEAL DIALYSIS SITE INTACT. CALL LIGHT WITH REACH. WILL CONTINUE TO EVALUATE CARE.
[2019-07-17 08:00] VITALS: BP 91/54
[2019-07-17] MEDS: PANTOPRAZOLE 40 MG TABLET.DR PO SCH (08:07)
[2019-07-17] MEDS: BUMETANIDE (1 MG) 1 MG TABLET PO SCH ×2 (09:00→17:08)
[2019-07-17] MEDS: DOCUSATE SODIUM 100 MG CAPSULE PO SCH ×2 (09:01→17:08)
[2019-07-17] MEDS: ALLOPURINOL 100 MG TABLET PO SCH (09:01)
[2019-07-17] MEDS: SILDENAFIL CITRATE 20 MG TABLET PO SCH ×3 (09:01→17:08)
[2019-07-17] MEDS: HYDROCODONE/APAP 5/325MG 1 EACH TABLET PO PRN ×2 (09:01→21:09)
[2019-07-17] MEDS: MULTIVIT W/MINERALS 1 TAB TABLET PO SCH (09:01)
[2019-07-17] MEDS: OPSUMIT 10 MG PO SCH (09:02)
[2019-07-17] MEDS: ASPIRIN 81 MG TAB.CHEW PO SCH (09:02)
--- NOTE | 2019-07-17 09:07 | NUR ---
M/S RN NOTES BUMEX HELD ORDERED DUE TO LOW BP 91/54, RE-CHECKED WITH 87/57.
--- NOTE | 2019-07-17 10:03 | NUR ---
M/S RN NOTES PT SEEN BY KAMAR MATTHEWS. GIVE BUMEX ORDERED PER FIGURE REFINISHER AND REPAIRER SINCE PT HAS LOW BP TRENDING. FOR DOSAGE TODAY ASK PATIENT PER FIGURE REFINISHER AND REPAIRER. PT REFERRED WITH DR. SANTA BEFORE STARTING DIGOXIN DUE TO VISION CHANGES WITH MEDICATION REPORTED BY PT.
--- NOTE | 2019-07-17 10:32 | NUR ---
M/S RN NOTES DISCUSSED WITH PT REGARDING BUMEX, REFUSED TO TAKE FOR TODAY'S DOSAGE. KAMAR MATTHEWS NOTIFIED,
--- NOTE | 2019-07-17 11:15 | NUR ---
M/S RN NOTES PT SEEN BY DR. DIAZ. WILL UPDATE OF HD WILL BE DONE TODAY.
[2019-07-17] MEDS: CEFTRIAXONE 1 G in IV D5W 50 ML IV SCH (12:44)
[2019-07-17] MEDS ORDERED: DIGOXIN 0.125 MG TABLET PO SCH (13:00)
--- NOTE | 2019-07-17 13:30 | NUR ---
M/S RN NOTES RECEIVED CALL FROM ESTELA(PHARMACY) TO GIVE VANCOMYCIN 500 MG AT 100 ML/HR ORDERED. PT HAD HD ON 07/15/19 WITH 1L OUT. VANCOMYCIN LEVEL 19 DRAWN 07/16. INSTRUCTION OF MEDICATION TO GIVE AFTER HD IF LEVEL <20. PT NOTIFIED AND AGREED TO BE GIVEN
[2019-07-17] MEDS: VANCOMYCIN 500 MG in IV D5W 100 ML IV PRN (14:24)
--- NOTE | 2019-07-17 14:30 | NUR ---
M/S RN NOTES CONFIRMED WITH LUCI, PT WILL HAVE DIALYSIS TODAY. PT MADE AWARE
--- NOTE | 2019-07-17 15:30 | NUR ---
M/S RN NOTES ABEL (DIALYSIS NURSE) REPORTED UNSUCCESSFUL HEMODIALYSIS DUE TO MALFUNCTION PERMACATH. ABEL REPORTED STATUS TO DR SCHROEDER.
[2019-07-17 16:00] VITALS: BP 97/57
--- NOTE | 2019-07-17 17:38 | NUR ---
RT NOTE PT REFUSES ABG. PT STATES IT IS TOO PAINFUL AND DOES NOT WANT IT. NO DISTRESS NOTED. PT AWAKE AND ALERT. RN DESEDGARDO NOTIFIED. Addendum: 07/17/19 at 1739 by JAIRON BURNETTE RT Amended: Links added.
--- NOTE | 2019-07-17 18:00 | NUR ---
M/S RN NOTES PT SEEN BY FREDY STODDARD NP.
--- NOTE | 2019-07-17 18:31 | NUR ---
M/S RN CLOSING NOTES PT A/O X4, ABLE TO MAKE NEEDS KNOWN. RESPIRATION EVEN AND NON LABORED, NO SOB NOTED. DENIES PAIN AT THIS TIME, PAIN TRIGGERED WHEN CHANGING IN POSITION DUE TO WOUND AT INNER BUTTOCKS. TREATMENT TOLERATED WELL. ABD SOFT AND NON DISTENDED WITH ACTIVE BOWEL SOUNDS, BM X 1 TODAY. VOIDED X2 IN THE BATHROOM. NO HD TODAY DUE TO MALFUNCTION PERMACATH. SKIN WARM TO TOUCH. IV SITE AT LEFT UPPER MIDLINE AND PATENT IN FLUSHING. ALL CONCERNS AND CARE ATTENDED. ENDORSED CARE TO NEXT SHIFT.
--- NOTE | 2019-07-17 19:30 | NUR ---
MS RN OPENING NOTES RECEIVED PATIENT FROM MORNING SHIFT, ALERT AND ORIENTED X 4 VERBALLY RESPONSIVE AND ABLE TO FOLLOW DIRECTIONS. BREATHING REGULAR AND UNLABORED ON ROOM AIR, LATEST SPO2 94%. LEFT UPPER ARM MIDLINE INTACT AND PATENT FLUSHING WELL WITH NO BLEEDING OR S/S OF INFECTION/INFILTRATION NOTED. LEFT CHEST PERMACATH INTACT WITH NO BLEEDING NOTED, DRESSING CLEAN AND DRY. LEFT LOWER ABDOMEN PERITONEAL DIALYSIS CATH INTACT WITH CLEAN DRY DRESSING. CALL LIGHT IN REACH, BED LOW AND LOCKED. WILL CONTINUE TO MONITOR.
[2019-07-17 20:00] VITALS: BP 104/61
--- NOTE | 2019-07-17 21:00 | NUR ---
MS RN NOTES BODY ASSESSMENT DONE. NOTED WITH LEFT UPPER CHEST BLISTER ANS STILL WITH LEFT BUTTOCK ABSCESS. PHOTO TAKEN, ATTACHED TO THE CHART. WOUND TREATMENT AND DRESSING CHANGED. WILL CONTINUE TO MONITOR.
--- NOTE | 2019-07-18 06:45 | NUR ---
MS RN CLOSING NOTES PATIENT IN BED ALERT AND ORIENTED X 4 VERBALLY RESPONSIVE AND ABLE TO FOLLOW DIRECTIONS. AFEBRILE WITH NO DISTRESS OBSERVED. BREATHING REGULAR AND UNLABORED ON OXYGEN AT 2L/min VIA NASAL CANNULA. LOWEST SPO2 78% ON ROOM AIR. LEFT UPPER ARM MIDLINE INTACT AND PATENT FLUSHING WELL WITH NO BLEEDING OR S/S OF INFECTION/INFILTRATION NOTED. LEFT CHEST PERMACATH INTACT WITH NO BLEEDING NOTED, DRESSING CLEAN AND DRY. LEFT LOWER ABDOMEN PERITONEAL DIALYSIS CATH INTACT WITH CLEAN DRY DRESSING. ASSESSED LEFT BUTTOCK ABSCESS AND LEFT UPPER CHEST BLISTER, PHOTO TAKEN ATTACHED TO THE CHART. WOUND TREATMENT PROVIDED. CALL LIGHT IN REACH, BED LOW AND LOCKED. WILL ENDORSE TO MORNING SHIFT FOR AM LABS AND JEAN PIERRE.
[2019-07-18 08:00] VITALS: BP 103/60
[2019-07-18 08:09] LABS: BASOPHILS # (AUTO) 0.1 /CMM (0.0-0.2); BASOPHILS % (AUTO) 0.9 % (0.0-2.0); HEMATOCRIT 28 % (33-45); HEMOGLOBIN 8.9 g/dL (11.5-14.8); LYMPHOCYTES # (AUTO) 1.1 /CMM (0.8-4.8); LYMPHOCYTES % (AUTO) 16.7 % (20.0-44.0); MEAN CORPUSCULAR HGB CONC 32 g/dl (31.0-36.0); MEAN CORPUSCULAR VOLUME 92 fL (82-100); MONOCYTES # (AUTO) 0.9 /CMM (0.1-1.30); NEUTROPHILS # (AUTO) 4.3 /CMM (1.8-8.9); NEUTROPHILS % (AUTO) 64.4 % (43.0-81.0); PLATELET COUNT (AUTO) 219 /CMM (150-450); RED BLOOD CELL COUNT(AUTO) 3.07 MIL/uL (4.0-5.2); WHITE BLOOD COUNT (AUTO) 6.6 K/uL (4.3-11.0)
[2019-07-18 08:18] LABS: ALANINE AMINOTRANSFERASE < 6 U/L (12-78); ALBUMIN 2.2 g/dL (3.4-5.0); ALKALINE PHOSPHATASE 92 U/L (46-116); ASPARTATE AMINOTRANSFERASE 15 U/L (15-37); BILIRUBIN,TOTAL 0.2 mg/dL (0.2-1.0); CALCIUM, SERUM 7.9 mg/dL (8.5-10.1); CARBON DIOXIDE 30 mmol/L (21-32); CHLORIDE 105 mmol/L (98-107); CREATININE 2.9 mg/dL (0.6-1.3); GLUCOSE 84 mg/dL (74-106); MAGNESIUM 1.7 mg/dL (1.8-2.4); POTASSIUM 4.1 mmol/L (3.5-5.1); SODIUM SERUM 141 mmol/L (136-145); TOTAL PROTEIN, SERUM 5.7 g/dL (6.4-8.2); UREA NITROGEN, BLOOD 20 mg/dL (7-18)
[2019-07-18 08:20] LABS: DIGOXIN 1.82 ng/mL (0.90-2.00)
--- NOTE | 2019-07-18 08:20 | NUR ---
RN OPENING NOTES PT AWAKE AND RESTING IN BED. PT ON 2L NASAL CANNULA. NO COMPLAINTS OF PAIN, SOB OR DISTRESS AT THIS TIME. PT HAS LEFT UPPER ARM MIDLINE, LEFT ABD PD CATHETER, AND LEFT CHEST PERMACATH. SAFETY PRECAUTIONS IN PLACE, BED IN LOWEST LOCKED POSITION, X2 SIDE RAILS UP AND CALL LIGHT WITHIN REACH. WILL CONTINUE TO MONITOR.
[2019-07-18] MEDS: OPSUMIT 10 MG PO SCH (08:30)
[2019-07-18] MEDS: MULTIVIT W/MINERALS 1 TAB TABLET PO SCH (08:30)
[2019-07-18] MEDS: ASPIRIN 81 MG TAB.CHEW PO SCH (08:31)
[2019-07-18] MEDS: BUMETANIDE (1 MG) 1 MG TABLET PO SCH ×2 (08:33→17:27)
[2019-07-18] MEDS: ALLOPURINOL 100 MG TABLET PO SCH (08:33)
[2019-07-18] MEDS: PANTOPRAZOLE 40 MG TABLET.DR PO SCH (08:33)
[2019-07-18] MEDS: DOCUSATE SODIUM 100 MG CAPSULE PO SCH ×2 (08:33→17:27)
[2019-07-18] MEDS: SILDENAFIL CITRATE 20 MG TABLET PO SCH ×3 (08:34→17:27)
[2019-07-18] MEDS: CEFTRIAXONE 1 G in IV D5W 50 ML IV SCH (12:16)
[2019-07-18] MEDS ORDERED: VANCOMYCIN 1 GM in IV D5W 250 ML IV ONE (15:00)
[2019-07-18 16:00] VITALS: BP 121/58
[2019-07-18] MEDS: HYDROCODONE/APAP 5/325MG 1 EACH TABLET PO PRN (17:27)
--- NOTE | 2019-07-18 19:32 | NUR ---
RN NOTES RECEIVED PATIENT AWAKE AND RESTING COMFORTABLY IN BED. PATIENT ON 2L NASAL CANNULA. PATIENT HAS LEFT UPPER ARM MIDLINE, LEFT ABD PD CATHETER, AND LEFT CHEST PERMA CATH. PD CATH TESTED TODAY 07/18/19. WILL RECEIVE PD TOMORROW ENDORSE BY AM NURSE. SAFETY PRECAUTIONS IN PLACE, BED IN LOWEST LOCKED POSITION, X2 SIDE RAILS UP AND CALL LIGHT WITHIN REACH. ASPIRATION PRECAUTION EMPHASIZED. DENIES ANY PAIN OR DISCOMFORT AT THIS TIME. FAMILY MEMBERS AT BEDSIDE. WILL MONITOR ACCORDINGLY.
--- NOTE | 2019-07-18 19:39 | NUR ---
RN CLOSING NOTES PT AWAKE AND RESTING IN BED. PT ON 2L NASAL CANNULA. PAIN MANAGED WITH PO NORCO. PT HAS LEFT UPPER ARM MIDLINE, LEFT ABD PD CATHETER, AND LEFT CHEST PERMACATH. PD CATH TESTED TODAY. WILL RECEIVE PD TOMORROW. SAFETY PRECAUTIONS IN PLACE, BED IN LOWEST LOCKED POSITION, X2 SIDE RAILS UP AND CALL LIGHT WITHIN REACH. WILL ENDORSE TO AIRFIELD ENGINEER OFFICER NURSE FOR CONTINUITY OF CARE.
[2019-07-18 20:57] VITALS: BP 95/48
[2019-07-19] MEDS: HYDROCODONE/APAP 5/325MG 1 EACH TABLET PO PRN ×2 (05:32→20:33)
[2019-07-19 06:53] LABS: BASOPHILS % (AUTO) 0.5 % (0.0-2.0); EOSINOPHILS % (AUTO) 4.2 % (0.0-6.0); HEMATOCRIT 27 % (33-45); HEMOGLOBIN 8.7 g/dL (11.5-14.8); LYMPHOCYTES % (AUTO) 18.1 % (20.0-44.0); MEAN CORPUSCULAR HGB CONC 32 g/dl (31.0-36.0); MEAN CORPUSCULAR VOLUME 92 fL (82-100); MONOCYTES # (AUTO) 0.7 /CMM (0.1-1.30); MONOCYTES % (AUTO) 13.7 % (2.0-12.0); NEUTROPHILS # (AUTO) 3.5 /CMM (1.8-8.9); NEUTROPHILS % (AUTO) 63.5 % (43.0-81.0); PLATELET COUNT (AUTO) 208 /CMM (150-450); RED BLOOD CELL COUNT(AUTO) 2.95 MIL/uL (4.0-5.2); WHITE BLOOD COUNT (AUTO) 5.4 K/uL (4.3-11.0)
--- NOTE | 2019-07-19 07:14 | NUR ---
RN NOTES ALL NEEDS ATTENDED AND MET, ABLE TO REST AND SLEPT AT INTERVALS, SAFETY MEASURES IN PLACE, CALL LIGHT WITHIN EASY REACH. ENDORSED TO AM NURSE FOR CONTINUITY OF CARE.
--- NOTE | 2019-07-19 07:30 | NUR ---
RN MS NOTES PT IN BED, AWAKE, ALERT AND ORIENTED, NO COMPLAINT OF PAIN AT THIS TIME, RESPIRATIONS NORMAL, CALL LIGHT WITHIN REACH, PT AWARE OF CURRENT PLAN OF CARE, VERBALIZED UNDERSTANDING, NEEDS ATTENDED.
[2019-07-19] MEDS: PANTOPRAZOLE 40 MG TABLET.DR PO SCH (07:50)
[2019-07-19 08:00] VITALS: BP 101/45
--- NOTE | 2019-07-19 08:00 | NUR ---
RN NOTE TRANSFER OF CARE RECEIVED FROM [facility] AT THIS TIME, PT STABLE NO S/S OF ANY DISTRESS BREATHING EVEN AND UNLABORED ON 2L VIA NC, SAFETY PRECAUTIONS IN PLACE, CALL LIGHT WITHIN REACH, WILL MONITOR ACCORDINGLY
--- NOTE | 2019-07-19 08:00 | NUR ---
RN MS NOTES CONTINUITY OF CARE ENDORSED TO BROOKE MARTINEZ.
[2019-07-19] MEDS ORDERED: ALTEPLASE CATHFLO 2 MG/VIAL XX ONE (08:30)
[2019-07-19] MEDS: SILDENAFIL CITRATE 20 MG TABLET PO SCH ×3 (08:43→16:26)
[2019-07-19] MEDS: DOCUSATE SODIUM 100 MG CAPSULE PO SCH ×2 (08:43→16:26)
[2019-07-19] MEDS: MULTIVIT W/MINERALS 1 TAB TABLET PO SCH (08:44)
[2019-07-19] MEDS: BUMETANIDE (1 MG) 1 MG TABLET PO SCH ×2 (08:44→16:26)
[2019-07-19] MEDS: ASPIRIN 81 MG TAB.CHEW PO SCH (08:44)
[2019-07-19] MEDS: ALLOPURINOL 100 MG TABLET PO SCH (08:44)
[2019-07-19] MEDS: OPSUMIT 10 MG PO SCH (08:44)
[2019-07-19] MEDS ORDERED: ALTEPLASE CATHFLO 2 MG/VIAL XX STA (08:52)
[2019-07-19 09:11] LABS: CREATININE 2.8 mg/dL (0.6-1.3); MAGNESIUM 1.6 mg/dL (1.8-2.4); PHOSPHORUS 3.4 mg/dL (2.5-4.9); POTASSIUM 3.8 mmol/L (3.5-5.1)
[2019-07-19 10:49] LABS: ABG BASE EXCESS 2.1 mmol/L; ABG OXYGEN SATURATION 68.9 % (92.0-98.5); ABG PCO2 45.5 mmHg (35.0-45.0); ABG PH 7.396 (7.350-7.450); ABG PO2 36.2 mmHg (75.0-100.0); COHb 0.5 % (0.5-1.5); MetHb 0.6 % (0.0-1.5); O2Hb 68.1 % (94.0-97.0); SITE, ABG Right Radial; VENT MODE, BG nasal cannula
--- NOTE | 2019-07-19 11:22 | NUR ---
RN NOTE RT CALLED AT THIS TIME AND ASKED ABOUT ABG RESULT, PER RT TRINA/DIANDRA RESULTS WERE SHOWED TO DR. SANTA AND NO NEW ORDERS GIVEN. PER RT CONTINUE CURRENT O2 CARE
[2019-07-19] MEDS: CEFTRIAXONE 1 G in IV D5W 50 ML IV SCH (12:07)
[2019-07-19 16:00] VITALS: BP 104/48
--- NOTE | 2019-07-19 18:33 | NUR ---
RN CLOSING NOTE PT IN BED AT LOWEST AND LOCKED POSITION WITH SIDE RAILS UP X2, A/O X4 WITH NO S/S OF ANY DISTRESS OR PAIN AT THIS TIME, IV ARE PATENT AND INTACT, FAMILY AT BEDSIDE, SAFETY PRECAUTIONS IN PLACE, CALL LIGHT WITHIN REACH, ALL NEEDS ATTENDED TO, WILL ENDORSE TO NIGHT RN FOR JEAN PIERRE.
--- NOTE | 2019-07-19 18:48 | NUR ---
RN NOTE WOUND CARE DONE AT THIS TIME
--- NOTE | 2019-07-19 19:30 | NUR ---
RN OPEN NOTES RECEIVED PATIENT AWAKE IN BED WITH FAMILY AT BEDSIDE. A/O X4. NO SIGNS OF DISTRESS OR DISCOMFORT. BREATHING EVEN AND UNLABORED. HAS ASHER MIDLINE, L CHEST PERMACATH AND L ABD PD CATH, INTACT. BED IN LOW LOCKED POSITION WITH SIDE RAILS X2. CALL LIGHT WITHIN REACH. WILL CONTINUE TO MONITOR.
--- NOTE | 2019-07-19 19:42 | NUR ---
PATIENT IS TOLD ABOUT BIPAP USE FOR THE NIGHT PER M.D.. PATIENT INSISTED OF USING OWN CPAP MACHINE, BUT EXPLAINED TO PATIENT THAT HOSPITAL POLICY MIGHT NOT ALLOWED FOR PATIENT TO USE OWN MACHINE. PATIENT AGREED TO TRY HOSPITAL BIPAP LATER ON THE NIGHT AND SEE IF PATIENT WOULD FEEL COMFORTABLE WITH THE HOSPITAL BIPAP. JUAN SANCHES IS NOTIFIED. Addendum: 07/19/19 at 1946 by RADHA AVALOS RT Amended: Links added.
[2019-07-19 20:21] VITALS: BP 94/58
--- NOTE | 2019-07-19 20:33 | NUR ---
RN NOTES ADMINISTERED NORCO 5/325 ORDERED FOR L BUTTOCK PAIN 05/04, AT PATIENT REQUEST. VSS. WILL CONTINUE TO MONITOR.
--- NOTE | 2019-07-20 01:13 | NUR ---
PATIENT TOOK OFF BIPAP MASK, COMPLAINING IT MADE HER FEEL DRY AND BEGAN PANICKING; PLACED BACK ON [facility]. RN IS AWARE. Addendum: 07/20/19 at 0115 by RADHA AVALOS RT Amended: Links added.
--- NOTE | 2019-07-20 06:54 | NUR ---
RN CLOSING NOTES PATIENT AWAKE IN BED CURRENTLY RECEIVING HD WITH HD NURSE AT BEDSIDE. A/O X4. NO SIGNS OF DISTRESS OR DISCOMFORT. BREATHING EVEN AND UNLABORED. ON 2LPM O2 VIA NC. HAS ASHER MIDLINE, L CHEST PERMACATH AND L ABD PD CATH, INTACT. ALL NEEDS MET. NO SIGNIFICANT CHANGES THROUGH THE NIGHT. BED IN LOW LOCKED POSITION WITH SIDE RAILS X2. CALL LIGHT WITHIN REACH. WILL ENDORSE TO AM SHIFT FOR JEAN PIERRE.
[2019-07-20 07:02] LABS: BASOPHILS % (AUTO) 0.5 % (0.0-2.0); EOSINOPHILS % (AUTO) 3.3 % (0.0-6.0); HEMATOCRIT 25 % (33-45); HEMOGLOBIN 8.1 g/dL (11.5-14.8); LYMPHOCYTES # (AUTO) 1.1 /CMM (0.8-4.8); LYMPHOCYTES % (AUTO) 19.7 % (20.0-44.0); MEAN CORPUSCULAR HGB CONC 32 g/dl (31.0-36.0); MEAN CORPUSCULAR VOLUME 92 fL (82-100); MONOCYTES # (AUTO) 0.7 /CMM (0.1-1.30); MONOCYTES % (AUTO) 12.2 % (2.0-12.0); NEUTROPHILS # (AUTO) 3.5 /CMM (1.8-8.9); NEUTROPHILS % (AUTO) 64.3 % (43.0-81.0); PLATELET COUNT (AUTO) 215 /CMM (150-450); RED BLOOD CELL COUNT(AUTO) 2.73 MIL/uL (4.0-5.2); WHITE BLOOD COUNT (AUTO) 5.5 K/uL (4.3-11.0)
--- NOTE | 2019-07-20 07:20 | NUR ---
MS RN NOTES PATIENT IN BED, ALERT ORIENTED X 4. NO ACUTE DISTRESS NOTED BREATHING UNLABORED. IV ACCESS PATENT AND INTACT, NO REDNESS OR SWELLING NOTED. WITH ON GOING DIALYSIS AT THIS TIME. SAFETY MEASURES IN PLACE. CALL LIGHT WITHIN REACH. WILL CONTINUE TO MONITOR ACCORDINGLY.
[2019-07-20 07:48] LABS: CALCIUM, SERUM 8.1 mg/dL (8.5-10.1); CREATININE 2.5 mg/dL (0.6-1.3); MAGNESIUM 1.5 mg/dL (1.8-2.4); PHOSPHORUS 3.6 mg/dL (2.5-4.9); POTASSIUM 3.8 mmol/L (3.5-5.1)
[2019-07-20 08:00] VITALS: BP 132/67
[2019-07-20] MEDS: PANTOPRAZOLE 40 MG TABLET.DR PO SCH (08:26)
--- NOTE | 2019-07-20 09:15 | NUR ---
MS RN NOTES DIALYSIS DONE. PATIENT WITH STABLE VITAL SIGNS. ALERT ORIENTED X 4. NO ACUTE DISTRESS NOTED.
[2019-07-20] MEDS: BUMETANIDE (1 MG) 1 MG TABLET PO SCH ×2 (09:48→17:40)
[2019-07-20] MEDS: DOCUSATE SODIUM 100 MG CAPSULE PO SCH ×2 (09:48→17:40)
[2019-07-20] MEDS: ASPIRIN 81 MG TAB.CHEW PO SCH (09:48)
[2019-07-20] MEDS: ALLOPURINOL 100 MG TABLET PO SCH (09:48)
[2019-07-20] MEDS: SILDENAFIL CITRATE 20 MG TABLET PO SCH ×3 (09:48→17:40)
[2019-07-20] MEDS: MULTIVIT W/MINERALS 1 TAB TABLET PO SCH (09:48)
[2019-07-20] MEDS: OPSUMIT 10 MG PO SCH (09:49)
--- NOTE | 2019-07-20 09:50 | NUR ---
MS RN NOTES CALLED PHARMACY REGARDING VANCOMYCIN IV, SPOKE WITH FRANSICO , SAID MEDICATION WILL BE SENT TO THE FLOOR. WILL ADMINISTER ONCE AVAILABLE ON THE FLOOR.
[2019-07-20] MEDS: VANCOMYCIN 500 MG in IV D5W 100 ML IV PRN (11:50)
[2019-07-20] MEDS: CEFTRIAXONE 1 G in IV D5W 50 ML IV SCH (13:20)
[2019-07-20 16:00] VITALS: BP 96/63
--- NOTE | 2019-07-20 19:25 | NUR ---
MS RN NOTES PATIENT IN BED, ALERT ORIENTED X 4. NO ACUTE DISTRESS NOTED BREATHING UNLABORED. IV ACCESS PATENT AND INTACT, NO REDNESS OR SWELLING NOTED. DIALYSIS DONE THIS MORNING, 2 LITERS OUT. PATIENT WITH STABLE VIATL SIGNS. NEEDS ATTENDED AND ANTICIPATION. SAFETY MEASURES IN PLACE. CALL LIGHT WITHIN REACH. ENDORSED TO NIGHT NURSE FOR CONTINUITY OF CARE.
--- NOTE | 2019-07-20 19:30 | NUR ---
MS RN OPENING NOTE RECEIVED PATIENT IN BED. A/O X4. PATIENT ON OXYGEN 2L/MIN VIA NASAL CANNULA. RESPIRATIONS ARE EVEN AND UNLABORED. NO SIGNS OF SOB NOTED AT THIS TIME. DENIES PAIN AT THIS TIME. IV ACCESS IS ASHER MIDLINE PATENT AND SALINE LOCKED. HD ACCESS IN LEFT CHEST PERMA CATH AND LEFT ABDOMINAL PD CATH. BED IS LOW AND LOCKED, SIDE RAILS UP X2, HOB ELEVATED 30 DEGREES. CALL LIGHT WITHIN REACH. WILL CONTINUE TO MONITOR.
[2019-07-20 20:00] VITALS: BP 107/71
--- NOTE | 2019-07-20 20:10 | NUR ---
MS RN NOTE PLACED PATIENT BACK ON OXYGEN 2L/MIN VIA NASAL CANNULA AFTER VIEWING VITAL SIGNS. OXYGEN SAT 96%. WILL CONTINUE TO MONITOR.
[2019-07-20] MEDS: CEPHALEXIN MONOHYDRATE 250 MG CAPSULE PO SCH (20:32)
[2019-07-21] MEDS: HYDROCODONE/APAP 5/325MG 1 EACH TABLET PO PRN ×3 (00:13→21:54)
--- NOTE | 2019-07-21 00:13 | NUR ---
MS RN NOTE ADMINISTERED PRN NORCO 5/325 FOR PAIN 8/10 IN LEFT BUTTOCK. WILL CONTINUE TO MONITOR.
--- NOTE | 2019-07-21 05:51 | NUR ---
MS RN NOTE PATIENT IS REFUSING AM LABS AT THIS TIME. METAL HARDENER WILL SEND SOMEONE AT 0730 OR 0800.
[2019-07-21] MEDS: CEPHALEXIN MONOHYDRATE 250 MG CAPSULE PO SCH ×3 (05:52→21:54)
--- NOTE | 2019-07-21 06:30 | NUR ---
MS RN CLOSING NOTE PATIENT IN BED. A/O X4. PATIENT ON OXYGEN 2L/MIN VIA NASAL CANNULA. RESPIRATIONS ARE EVEN AND UNLABORED. NO SIGNS OF SOB. NO APPARENT DISTRESS THROUGHOUT SHIFT. IV ACCESS IS MAINTAINED IN ASHER MIDLINE PATENT AND SALINE LOCKED. HD ACCESS IN LEFT CHEST PERMA CATH AND LEFT ABDOMINAL PD CATH. BED IS LOW AND LOCKED, SIDE RAILS UP X2, HOB ELEVATED 30 DEGREES. CALL LIGHT WITHIN REACH. WILL ENDORSE TO NEXT SHIFT.
[2019-07-21] MEDS: PANTOPRAZOLE 40 MG TABLET.DR PO SCH (07:53)
[2019-07-21 08:00] VITALS: BP 105/70
--- NOTE | 2019-07-21 08:00 | NUR ---
MS RN OPENING NOTES Received Patient awake and resting in bed. A/O x 4. VS stable with no acute distress. Breathing even and unlabored on 2LPM via NC with no respiratory distress. Patient stated tolerable pain level of 6/10 on LEFT BUTTOCK ABSCESS. Refused pain medications at this time. Will continue to monitor. ASHER Midline clean, dry, intact and flushing well. LEFT CHEST PERMACATH clean, dry, and intact. LEFT ABD PD CATH clean, dry, and intact. Safety precautions in place. Bed locked and set to lowest position with side rails x 2 up. All needs rendered at this time. Call light within reach. Will continue to monitor.
[2019-07-21] MEDS: ASPIRIN 81 MG TAB.CHEW PO SCH (08:39)
[2019-07-21] MEDS: MULTIVIT W/MINERALS 1 TAB TABLET PO SCH (08:41)
[2019-07-21] MEDS: OPSUMIT 10 MG PO SCH (08:41)
[2019-07-21] MEDS: DOCUSATE SODIUM 100 MG CAPSULE PO SCH ×2 (08:41→17:22)
[2019-07-21] MEDS: ALLOPURINOL 100 MG TABLET PO SCH (08:41)
[2019-07-21] MEDS: SILDENAFIL CITRATE 20 MG TABLET PO SCH ×3 (08:41→17:22)
[2019-07-21] MEDS: BUMETANIDE (1 MG) 1 MG TABLET PO SCH ×2 (08:48→17:22)
[2019-07-21 09:03] LABS: CALCIUM, SERUM 7.9 mg/dL (8.5-10.1); CREATININE 2.2 mg/dL (0.6-1.3); MAGNESIUM 1.3 mg/dL (1.8-2.4); PHOSPHORUS 3.4 mg/dL (2.5-4.9); POTASSIUM 3.6 mmol/L (3.5-5.1)
[2019-07-21 09:04] LABS: BASOPHILS % (AUTO) 0.4 % (0.0-2.0); EOSINOPHILS % (AUTO) 3.7 % (0.0-6.0); HEMATOCRIT 27 % (33-45); HEMOGLOBIN 8.5 g/dL (11.5-14.8); LYMPHOCYTES % (AUTO) 16.8 % (20.0-44.0); MEAN CORPUSCULAR HGB CONC 32 g/dl (31.0-36.0); MEAN CORPUSCULAR VOLUME 92 fL (82-100); MONOCYTES # (AUTO) 0.6 /CMM (0.1-1.30); MONOCYTES % (AUTO) 10.4 % (2.0-12.0); NEUTROPHILS % (AUTO) 68.7 % (43.0-81.0); PLATELET COUNT (AUTO) 214 /CMM (150-450); WHITE BLOOD COUNT (AUTO) 5.8 K/uL (4.3-11.0)
[2019-07-21] MEDS ORDERED: Magnesium 1GM/D5W 100ML PREMIX 1 G in PREMIX 1 EA IV SCH (11:00)
[2019-07-21] MEDS: Magnesium 1GM/D5W 100ML PREMIX 100 ML IV SCH ×2 (11:21→12:43)
[2019-07-21 16:00] VITALS: BP 105/61
--- NOTE | 2019-07-21 18:44 | NUR ---
MS RN CLOSING NOTES Patient awake and watching TV in bed. A/O x 4. VS stable with no acute distress. Breathing even and unlabored on 2LPM via NC with no respiratory distress. Patient stated tolerable pain level of 6/10 on LEFT BUTTOCK ABSCESS. Offered and refused pain medications at this time. Will endorse to oncoming shift. ASHER Midline clean, dry, intact and flushing well. LEFT CHEST PERMACATH clean, dry, and intact. LEFT ABD PD CATH clean, dry, and intact. Safety precautions in place. Bed locked and set to lowest position with side rails x 2 up. All needs rendered at this time. Call light within reach. Will endorse plan of care to oncoming shift.
--- NOTE | 2019-07-21 19:20 | NUR ---
RN OPEN NOTES RECEIVED PATIENT AWAKE IN BED. A/O X4. NO SIGNS OF DISTRESS OR DISCOMFORT. BREATHING EVEN AND UNLABORED. STATES PAIN IS TOLERABLE AT THIS TIME. HAS ASHER MIDLINE, PATENT AND INTACT, NO SIGNS OF REDNESS OR INFILTRATION. HAS L CHEST PERMACATH AND L ABD PD CATH, CLEAN DRY AND INTACT. BED IN LOW LOCKED POSITION WITH SIDE RAILS X2. CALL LIGHT WITHIN REACH. WILL CONTINUE TO MONITOR.
[2019-07-21 20:00] VITALS: BP 90/59
[2019-07-22] MEDS: CEPHALEXIN MONOHYDRATE 250 MG CAPSULE PO SCH ×3 (05:46→20:29)
[2019-07-22 06:16] LABS: BASOPHILS % (AUTO) 0.6 % (0.0-2.0); HEMATOCRIT 26 % (33-45); HEMOGLOBIN 8.2 g/dL (11.5-14.8); LYMPHOCYTES # (AUTO) 1.1 /CMM (0.8-4.8); MEAN CORPUSCULAR HGB CONC 32 g/dl (31.0-36.0); MEAN CORPUSCULAR VOLUME 92 fL (82-100); MONOCYTES # (AUTO) 0.6 /CMM (0.1-1.30); MONOCYTES % (AUTO) 11.5 % (2.0-12.0); NEUTROPHILS # (AUTO) 3.4 /CMM (1.8-8.9); NEUTROPHILS % (AUTO) 62.9 % (43.0-81.0); PLATELET COUNT (AUTO) 220 /CMM (150-450); RED BLOOD CELL COUNT(AUTO) 2.76 MIL/uL (4.0-5.2); WHITE BLOOD COUNT (AUTO) 5.3 K/uL (4.3-11.0)
[2019-07-22 06:47] LABS: CALCIUM, SERUM 7.9 mg/dL (8.5-10.1); CREATININE 2.2 mg/dL (0.6-1.3); MAGNESIUM 1.7 mg/dL (1.8-2.4); PHOSPHORUS 3.6 mg/dL (2.5-4.9); POTASSIUM 3.7 mmol/L (3.5-5.1)
[2019-07-22] MEDS: PANTOPRAZOLE 40 MG TABLET.DR PO SCH (07:30)
--- NOTE | 2019-07-22 07:35 | NUR ---
RN CLOSING NOTES PATIENT RESTING COMFORTABLY IN BED. A/O X4. NO SIGNS OF DISTRESS OR DISCOMFORT. BREATHING EVEN AND UNLABORED. ON 2LPM O2 VIA NC. HAS ASHER MIDLINE, L CHEST PERMACATH AND L ABD PD CATH, INTACT. ALL NEEDS MET. NO SIGNIFICANT CHANGES THROUGH THE NIGHT. BED IN LOW LOCKED POSITION WITH SIDE RAILS X2. CALL LIGHT WITHIN REACH. ENDORSED TO AM SHIFT FOR JEAN PIERRE.
[2019-07-22 07:58] VITALS: BP 91/58
[2019-07-22 08:02] VITALS: BP 91/58
[2019-07-22] MEDS: DOCUSATE SODIUM 100 MG CAPSULE PO SCH ×2 (08:40→16:56)
[2019-07-22] MEDS: ASPIRIN 81 MG TAB.CHEW PO SCH (08:40)
[2019-07-22] MEDS: MULTIVIT W/MINERALS 1 TAB TABLET PO SCH (08:41)
[2019-07-22] MEDS: SILDENAFIL CITRATE 20 MG TABLET PO SCH ×3 (08:41→16:56)
[2019-07-22] MEDS: OPSUMIT 10 MG PO SCH (08:41)
[2019-07-22] MEDS: BUMETANIDE (1 MG) 1 MG TABLET PO SCH ×2 (08:41→16:56)
[2019-07-22] MEDS: ALLOPURINOL 100 MG TABLET PO SCH (08:41)
--- NOTE | 2019-07-22 10:20 | NUR ---
dressing on left buttock changed
[2019-07-22] MEDS: ALBUMIN 25% 25 GM in PREMIX 1 EA IV PRN (11:28)
--- NOTE | 2019-07-22 13:30 | NUR ---
HD with output 1000ml. VS are stable, no distress noted , on room air saturating well.
--- NOTE | 2019-07-22 18:12 | NUR ---
PATIENT WILL BE D/C AND TRANSFERRED TO [facility]. ALL D/C PAPERS PREPARED. REPORT GIVEN. PATIENT GETTING READY FOR D/C. ALL NEEDS ATTENDED. ALL HOME MEDS RETURNED FROM PHARMACY AND GIVEN TO PATIENT. WILL ENDORSE TO NEXT SHIFT FOR JEAN PIERRE. UNIX ANALYST TIME 2030
--- NOTE | 2019-07-22 19:12 | NUR ---
REPORT CALLED TO VERA MARTINEZ ([facility] )
--- NOTE | 2019-07-22 19:20 | NUR ---
RN OPEN NOTES RECEIVED PATIENT AWAKE IN BED WITH FAMILY AT BEDSIDE. PATIENT AWAITING DC TO [facility]. A/O X4. NO SIGNS OF DISTRESS OR DISCOMFORT. BREATHING EVEN AND UNLABORED. HAS ASHER MIDLINE, L CHEST HD PERMACATH AND L ABD PD CATH, INTACT. BED IN LOW LOCKED POSITION WITH SIDE RAILS X2. CALL LIGHT WITHIN REACH. WILL CONTINUE TO MONITOR. PER AM SHIFT ALL DC PAPERWORK DONE, PATIENT TO BE PICKED UP AT 2029.
[2019-07-22 20:00] VITALS: BP 90/55
[2019-07-22] MEDS: HYDROCODONE/APAP 5/325MG 1 EACH TABLET PO PRN (20:30)
--- NOTE | 2019-07-22 21:00 | NUR ---
RN CLOSING NOTES PATIENT DISCHARGED TO [facility] VIA MEDICAL TRANSPORT IN STABLE CONDITION. A/OX4. NO SIGNS OF DISTRESS OR DISCOMFORT. BREATHING EVEN AND UNLABORED. ON 2LPM NC. PATIENT VERBALIZE UNDERSTANDING OF DISCHARGE INSTRUCTIONS. MIDLINE REMOVED WITH NO COMPLICATIONS NOTED. L ABD PD CATH AND L CHEST PERMACATH INTACT. WOUND DOCUMENTATION PHOTOS TAKEN. DRESSING C/D/I. ALL BELONGINGS WITH PATIENT.
== END 2019-07-22 21:06 | DRG 182 ==
LOC: ER 18:30 → TELE 20:15 → MED 07-06 10:38
PROVIDERS: ADMIT Internal Medicine; ATTEND Nurse Practitioner Acute Care
PROC: 5A1D70Z Performance of Urinary Filtration, Intermittent, Less than 6 Hours Per Day (ICD-10-PCS; 2019-07-05)
PROC: 05HC33Z Insertion of Infusion Device into Left Basilic Vein, Percutaneous Approach (ICD-10-PCS; 2019-07-05)
PROC: 0WHG43Z Insertion of Infusion Device into Peritoneal Cavity, Percutaneous Endoscopic Approach (ICD-10-PCS; 2019-07-09)
PROC: 0J990ZZ Drainage of Buttock Subcutaneous Tissue and Fascia, Open Approach (ICD-10-PCS; principal; 2019-07-14)
PROC: 05CY3ZZ Extirpation of Matter from Upper Vein, Percutaneous Approach (ICD-10-PCS; principal; 2019-07-14)
DX: T82.41XA Breakdown (mechanical) of vascular dialysis catheter, initial encounter (principal); E43 Unspecified severe protein-calorie malnutrition; I13.2 Hypertensive heart and chronic kidney disease with heart failure and with stage 5 chronic kidney disease, or end stage renal disease; D68.59 Other primary thrombophilia; I27.20 Pulmonary hypertension, unspecified; K29.71 Gastritis, unspecified, with bleeding; I95.9 Hypotension, unspecified; E83.42 Hypomagnesemia; I50.32 Chronic diastolic (congestive) heart failure; E66.2 Morbid (severe) obesity with alveolar hypoventilation; K22.0 Achalasia of cardia; M34.9 Systemic sclerosis, unspecified; N18.6 End stage renal disease; I48.0 Paroxysmal atrial fibrillation; Y92.009 Unspecified place in unspecified non-institutional (private) residence as the place of occurrence of the external cause; Z98.890 Other specified postprocedural states; Z79.51 Long term (current) use of inhaled steroids; Z79.82 Long term (current) use of aspirin; M10.9 Gout, unspecified; D63.8 Anemia in other chronic diseases classified elsewhere; H52.4 Presbyopia; H26.9 Unspecified cataract; L02.31 Cutaneous abscess of buttock; N39.0 Urinary tract infection, site not specified; Z79.899 Other long term (current) drug therapy; Z79.01 Long term (current) use of anticoagulants; Z99.2 Dependence on renal dialysis; Z99.81 Dependence on supplemental oxygen; Z87.891 Personal history of nicotine dependence; T46.0X5A Adverse effect of cardiac-stimulant glycosides and drugs of similar action, initial encounter; B95.2 Enterococcus as the cause of diseases classified elsewhere; Z68.38 Body mass index [BMI] 38.0-38.9, adult; Y71.2 Prosthetic and other implants, materials and accessory cardiovascular devices associated with adverse incidents; T63.301A Toxic effect of unspecified spider venom, accidental (unintentional), initial encounter; Y92.9 Unspecified place or not applicable; J43.2 Centrilobular emphysema; J43.8 Other emphysema; K42.9 Umbilical hernia without obstruction or gangrene
CPT/HCPCS: 36415; 36569; 36600; 70450-TC; 71045-TC; 71250-TC; 76882; 80048-TC; 80053-TC; 80162-TC; 80202-TC; 81000-TC; 82803-TC; 83735-TC; 84100-TC; 84484-TC; 85025-TC; 85610-TC; 86706; 87040-TC; 87070-TC; 87081-TC; 87086-TC; 87186-TC; 87340; 90935-TC; 93307-TC; 93970-TC; 94799-TC; 97116-TC; 97530-TC; A4216; A6253; A6403; A6407; C1750; G0378; J0330; J0690; J0696; J0885; J1100; J1165; J1644; J2250; J2405; J2704; J2765; J2997; J3010; J3370; J3475; J3490; J7030; J7050; J7060; P9047; Q0162